=== PATIENT | male | born 1950 | race Caucasian/White ===

== ENCOUNTER 2018-02-21 09:54 | Inpatient (IN) | payer OTHER ==
[2018-02-21] MEDS ORDERED: PIPERACILLIN/TAZOB 4.5 GM 4.5 GM in DEXTROSE 5%-WATER - 100 ML IVPB ONE (10:49)
[2018-02-21] MEDS ORDERED: VANCOMYCIN 1,000 MG in DEXTROSE 5%-WATER - 250 ML IVPB ONE (10:49)
--- NOTE | 2018-02-21 11:04 | PDOC ---
History of Present Illness - General Chief Complaint: Wound Stated Complaint: WOUND Time Seen by Provider: 02/21/18 10:20 - History of Present Illness Initial Comments: 02/21/18 13:12 The patient is a 67-year-old male with past medical history significant for DM type 2 and Recurrent chronic left foot wound w/ Charcot deformity (on Clindamycin for 3 weeks, without relief) presents to the emergency department with a wound to the left foot. The patient presents with an ulcer to the arch of the L. foot, thats been recurrent following a foot surgery 3 years prior ( has hardware in foot). The patient reports receiving IV antibiotic at a hospital in [place], with noted improvement following. The patient reports November of 2017, the wound recurred to the L. foot. The patient reports following up with Oil House Attendant Dr. Sherman 3 weeks ago, who started the patient on Clindamycin daily, reports being compliant with the antibiotic. The patient states he saw Dr. Aragon yesterday who was concerned for a possible infection and cellulitis and referred the patient to the ER. The patient did not have clothes for overnight yesterday so elected to come to the ED today. The patient reports he ambulated with a leg brace. The patient reports chronic shooting pain to the legs, denies a new onset of pain. Denies clear or purulent discharge, fever, chills, chest pain, shortness of breath, new numbness, tingling or loss of sensation. The patient reports at baseline he is unable to move his left toes. The patient was referred to Wound Care team by Oil House Attendant Dr. Sherman. The patient followed up by Dr. Aragon on 02/20/2018, who advised the patient due to cellulitic appearance admission would be best to treat infection and r/o osteomyelitis. Prior to leaving the office, an offloading collage dressing was placed on the wound. Allergies: sulfamethoxazole and trimethoprim Social history: Current 1 pack a day tobacco user, 2 bottle of vodka use reported. No past or present use of recreational drug use reported. Surgical history: charcot's foot surgery left 2014 PCP: None reported Oil House Attendant: Dr. Sherman. Past History - Past Medical History Allergies/Adverse Reactions: Allergies Allergy/AdvReac Type Severity Reaction Status Date / Time sulfamethoxazole Allergy Verified 02/21/18 10:00 [From Bactrim] trimethoprim [From Bactrim] Allergy Verified 02/21/18 10:00 Home Medications: Ambulatory Orders Gabapentin [Neurontin] 1,600 mg PO TID 02/20/18 Metformin HCl [Metformin HCl ER] 1 tab PO BID 02/20/18 Sitagliptin Phosphate [Januvia] 1 tab PO DAILY 02/20/18 COPD: No Diabetes: Yes Other medical history: chr wound Lt foot - Surgical History Orthopedic Surgery: Yes (charcots foot surgery left 2015) - Immunization History Immunization Up to Date: Yes - Suicide/Smoking/Psychosocial Hx Smoking History: Current every day smoker Have you smoked in the past 12 months: Yes Number of Cigarettes Smoked Daily: 20 Information on smoking cessation initiated: No Review of Systems - Review of Systems Comments:: 02/21/18 13:14 GENERAL/CONSTITUTIONAL: No fever or chills. No weakness. HEAD, EYES, EARS, NOSE AND THROAT: No change in vision. No ear pain or discharge. No sore throat. GASTROINTESTINAL: No nausea, vomiting, diarrhea or constipation. GENITOURINARY: No dysuria, frequency, or change in urination. CARDIOVASCULAR: No chest pain or shortness of breath. RESPIRATORY: No cough, wheezing, or hemoptysis. MUSCULOSKELETAL: Chronic leg pain, no new onset of pain. No joint or muscle swelling or pain. No neck or back pain. SKIN: (+) Wound to the Arch of the L. foot. No rash NEUROLOGIC: No numbness, tingling or loss of sensation. No headache, vertigo, loss of consciousness, or change in strength/sensation. ENDOCRINE: No increased thirst. No abnormal weight change. HEMATOLOGIC/LYMPHATIC: No anemia, easy bleeding, or history of blood clots. ALLERGIC/IMMUNOLOGIC: No hives or skin allergy. *Physical Exam - Vital Signs Last Vital Signs Temp Pulse Resp BP Pulse Ox 98.5 F 85 17 117/71 97 02/21/18 09:54 02/21/18 09:54 02/21/18 09:54 02/21/18 09:54 02/21/18 09:54 - Physical Exam Comments: 02/21/18 13:15 GENERAL: Awake, alert, and fully oriented, in no acute distress EYES: sclera anicteric, conjunctiva clear ENT: Moist mucosa LUNGS: Breath sounds equal, clear to auscultation bilaterally. No wheezes, and no crackles HEART: Regular rate and rhythm, normal S1 and S2, no murmurs, rubs or gallops ABDOMEN: Soft, nontender, normoactive bowel sounds. No guarding, no rebound. No masses EXTREMITIES: Normal range of motion, no edema. No clubbing or cyanosis. No cords, erythema, or tenderness NEUROLOGICAL: Normal speech, cranial nerves intact SKIN: L plantar midfoot with 4x2 oval ulcer with some granulation tissue and surrounding erythema extending to distal calf. Heart Score/ECG Review #1 02/21/18 13:18 Twelve-lead EKG was performed and reviewed by me. Normal sinus rhythm, rate 74. Left axis deviation. Right bundle branch block and left anterior fascicular block. ED Treatment Course - LABORATORY CBC & Chemistry Diagram: 02/21/18 12:10 02/21/18 12:10 - RADIOLOGY Radiology Studies Ordered: Category Date Time Status CHEST PA & LAT [RAD] Stat Radiology 02/21/18 10:46 Ordered FOOT-LEFT [RAD] Stat Radiology 02/21/18 10:47 Ordered DUPLEX VASCUL US-1 LEG [US] Stat Ultrasound 02/21/18 10:48 Ordered Medical Decision Making - Medical Decision Making 02/21/18 11:03 67yo M hx DM2 c/b L charcot foot and foot wound presents to the ED for admission due to infected foot wounds despite 3 weeks of clindamycin. Vitals wnl. Foot appears cellulitic with no crepitance and erythema and swelling to L distal calf as well. Will broaden to Vanc/Zosyn, check labs, XR for osteo and gas, and US to eval for DVT. 02/21/18 15:23 US neg for DVT XR done, read pending Case discussed with Dr. Car, who is seeing pt Case discussed with Dr. Andrew, who accepts pt for admission Case discussed in detail with admitting physician including history, physical exam and ancillary studies. Admitting physician has assumed care for the patient, will follow all pending diagnostics and will complete the evaluation and treatment. *DC/Admit/Observation/Transfer Diagnosis at time of Disposition: Cellulitis, Diabetic foot ulcer, Failure of outpatient treatment - Discharge Dispostion Condition at time of disposition: Stable Decision to Admit order: Yes - Referrals Referrals: ON STAFF,NOT [Primary Care Provider] - - Patient Instructions - Post Discharge Activity - Attestations Physician Attestion: 02/21/18 15:27 I, Dr. Horacio Sanchez MD, attest that this document has been prepared under my direction and personally reviewed by me in its entirety. I further attest, that it accurately reflects all work, treatment, procedures and medical decision -making performed by me.
[2018-02-21 12:25] LABS: BASO % 0.8 % (0-2.0); EOS % 3.5 % (0-4.5); HEMATOCRIT 45.5 % (35.4-49); HEMOGLOBIN 15.3 GM/dL (11.7-16.9); LYMPH % 16.8 % (8-40); MCH 31.3 pg (25.7-33.7); MCHC 33.6 g/dl (32.0-35.9); MEAN CELL VOLUME 93.4 fl (80-96); MEAN PLT VOLUME 7.5 fl (7.5-11.1); MONO % 5.5 % (3.8-10.2); NEUT % 73.4 % (42.8-82.8); PLATELET COUNT 222 K/MM3 (134-434); RBC 4.87 M/mm3 (4.00-5.60); RDW 13.2 % (11.9-15.9); WHITE BLOOD COUNT 7.5 K/mm3 (4.0-10.0)
[2018-02-21] MEDS ORDERED: PIPERACILLIN/TAZOB 4.5 GM 4.5 GM/100 ML BAG IVPB ONE (12:31)
[2018-02-21] MEDS ORDERED: VANCOMYCIN 1 GRAM (PRE-DOCKED) 1,000 MG/250 ML BAG IVPB ONE (12:31)
[2018-02-21 12:45] LABS: ALBUMIN 3.5 g/dl (3.4-5.0); ALK PHOS 76 U/L (45-117); ANION GAP 10 MMOL/L (8-16); BILIRUBIN,TOTAL 0.3 mg/dL (0.2-1); BLOOD UREA NITROGEN 5 mg/dL (7-18); CALCIUM 9.7 mg/dL (8.5-10.1); CHLORIDE 102 mmol/L (98-107); CO2 27 mmol/L (21-32); CREATININE 0.8 mg/dL (0.55-1.3); GLUCOSE,RANDOM 98 mg/dL (74-106); POTASSIUM 4.4 mmol/L (3.5-5.1); SGOT/AST 10 U/L (15-37); SGPT/ALT 17 U/L (13-61); SODIUM 139 mmol/L (136-145); TOT PROT 7.2 g/dl (6.4-8.2)
--- NOTE | 2018-02-21 14:04 | CON.ID ---
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 The patient presents with an ulcer to the arch of the L. foot, that s been recurrent following a foot surgery 3 years prior (has hardware in foot). The patient reports receiving IV antibiotic at a hospital in [place], with noted improvement following. The patient reports November of 2017, the wound recurred to the L. foot. The patient reports following up with Cloth Washer Back Tender Dr. Sherman 3 weeks ago, who started the patient on Clindamycin daily, reports being compliant with the antibiotic. patients leg worsened inspite of being on abx The patient reports chronic shooting pain to the legs, denies a new onset of pain. Denies clear or purulent discharge, fever, chills, chest pain, shortness of breath, new numbness, tingling or loss of sensation. The patient reports at baseline he is unable to move his left toes. - History Source History Provided By: Patient Limitations to Obtaining History: No Limitations - Smoking History Smoking history: Current every day smoker Have you smoked in the past 12 months: Yes Aproximately how many cigarettes per day: 20 Home Medications - Allergies Allergies/Adverse Reactions: Allergies Allergy/AdvReac Type Severity Reaction Status Date / Time sulfamethoxazole Allergy Verified 02/21/18 10:00 [From Bactrim] trimethoprim [From Bactrim] Allergy Verified 02/21/18 10:00 - Home Medications Home Medications: Ambulatory Orders Gabapentin [Neurontin] 1,600 mg PO TID 02/20/18 Metformin HCl [Metformin HCl ER] 1 tab PO BID 02/20/18 Sitagliptin Phosphate [Januvia] 1 tab PO DAILY 02/20/18 Review of Systems - Review of Systems Constitutional: reports: No Symptoms Eyes: reports: No Symptoms HENT: reports: No Symptoms Neck: reports: No Symptoms Cardiovascular: reports: No Symptoms Respiratory: reports: No Symptoms Gastrointestinal: reports: No Symptoms Genitourinary: reports: No Symptoms Musculoskeletal: reports: No Symptoms Integumentary: reports: Change in Color, Erythema (left foot), Wound Neurological: reports: No Symptoms Endocrine: reports: No Symptoms Hematology/Lymphatic: reports: No Symptoms Psychiatric: reports: No Symptoms Physical Exam Vital Signs: Vital Signs Temperature 98.5 F 02/21/18 09:54 Pulse Rate 85 02/21/18 09:54 Respiratory Rate 17 02/21/18 09:54 Blood Pressure 117/71 02/21/18 09:54 O2 Sat by Pulse Oximetry (%) 97 02/21/18 09:54 Constitutional: Yes: Well Nourished, Calm, Mild Distress Eyes: Yes: Conjunctiva Clear HENT: Yes: Atraumatic, Normocephalic Neck: Yes: Supple, Trachea Midline Cardiovascular: Yes: Regular Rate and Rhythm Respiratory: Yes: Regular, CTA Bilaterally Gastrointestinal: Yes: Normal Bowel Sounds, Soft Musculoskeletal: Yes: WNL Extremities: Yes: Erythema (left foot), Other Integumentary: Yes: Erythema, Other Wound/Incision: Yes: Other (left plantal non healing wound) Neurological: Yes: Alert, Oriented Psychiatric: Yes: Alert, Oriented Labs: CBC, BMP 02/21/18 12:10 02/21/18 12:10 Imaging - Results Chest X-ray: Report Reviewed, Image Reviewed X-ray: Report Reviewed, Image Reviewed Assessment/Plan Problem List - Problems (1) Diabetes Code(s): E11.9 - TYPE 2 DIABETES MELLITUS WITHOUT COMPLICATIONS (2) Cellulitis Code(s): L03.90 - CELLULITIS, UNSPECIFIED (3) Diabetic foot ulcer Code(s): E11.621 - TYPE 2 DIABETES MELLITUS WITH FOOT ULCER; L97.509 - NON- PRESSURE CHRONIC ULCER OTH PRT UNSP FOOT W UNSP SEVERITY 4 r/o osteo of the foot plan will start patient on zosyn will get bone scan to see if patient has osteo podiatry to see the patient rest as per the team
--- NOTE | 2018-02-21 15:43 | EKG ---
Test Reason : Blood Pressure : / mmHG Vent. Rate : 074 BPM Atrial Rate : 074 BPM P-R Int : 194 ms QRS Dur : 132 ms QT Int : 442 ms P-R-T Axes : 070 -55 -23 degrees QTc Int : 490 ms NORMAL SINUS RHYTHM RIGHT BUNDLE BRANCH BLOCK LEFT ANTERIOR FASCICULAR BLOCK BIFASCICULAR BLOCK SEPTAL INFARCT , AGE UNDETERMINED ABNORMAL ECG NO PREVIOUS ECGS AVAILABLE Confirmed by ROSENDA MORA, YENIFER ([id number]) on 02/21/2018 3:42:59 PM Referred By: Confirmed By:YENIFER HERZOG MD
--- NOTE | 2018-02-21 18:42 | HP ---
Admitting History and Physical - Primary Care Physician PCP: [facility] - Admission History of Present Illness: 67-year-old male with past medical history significant for DM type 2 and Recurrent chronic left foot wound w/ Charcot deformity (on Clindamycin for 3 weeks, without relief) presents to the emergency department with a wound to the left foot. The patient presents with an ulcer to the arch of the L. foot, that s been recurrent following a foot surgery 3 years prior (has hardware in foot). The patient reports receiving IV antibiotic at a hospital in [place], with noted improvement following. The patient reports November of 2017, the wound recurred to the L. foot. The patient reports following up with Bench Technician Dr. Sherman 3 weeks ago, who started the patient on Clindamycin daily, reports being compliant with the antibiotic. The patient states he saw Dr. Aragon yesterday who was concerned for a possible infection and cellulitis and referred the patient to the ER. The patient did not have clothes for overnight yesterday so elected to come to the ED today. The patient reports he ambulated with a leg brace. - Past Medical History Endocrine: Yes: Diabetes Mellitus - Smoking History Smoking history: Current every day smoker Have you smoked in the past 12 months: Yes Aproximately how many cigarettes per day: 20 Home Medications - Allergies Allergies/Adverse Reactions: Allergies Allergy/AdvReac Type Severity Reaction Status Date / Time sulfamethoxazole Allergy Verified 02/21/18 10:00 [From Bactrim] trimethoprim [From Bactrim] Allergy Verified 02/21/18 10:00 - Home Medications Home Medications: Ambulatory Orders Gabapentin [Neurontin] 1,200 mg PO TID 02/20/18 Metformin HCl [Metformin HCl ER] 1 tab PO BID 02/20/18 Sitagliptin Phosphate [Januvia] 100 tab PO DAILY 02/20/18 Pramipexole Dihydrochloride [Mirapex -] 0.125 mg PO HS 02/22/18 Physical Examination Vital Signs: Vital Signs Temperature 98.2 F 02/21/18 17:51 Pulse Rate 68 02/21/18 17:51 Respiratory Rate 18 02/21/18 17:51 Blood Pressure 141/76 02/21/18 17:51 O2 Sat by Pulse Oximetry (%) 100 02/21/18 17:51 Constitutional: Yes: No Distress HENT: Yes: Atraumatic Neck: Yes: Supple Cardiovascular: Yes: Regular Rate and Rhythm Respiratory: Yes: CTA Bilaterally Gastrointestinal: Yes: Normal Bowel Sounds Extremities: Yes: Other (left foot infection, charcot foot) Edema: Yes Edema: LLE: 1+ Neurological: Yes: Alert, Oriented Labs: CBC, BMP 02/21/18 12:10 02/21/18 12:10 Problem List - Problems (1) Diabetes Assessment/Plan: on po meds bgms sliding [place] insulin Code(s): E11.9 - TYPE 2 DIABETES MELLITUS WITHOUT COMPLICATIONS (2) Cellulitis Assessment/Plan: on iv abx woundcare podiatry and id on board Code(s): L03.90 - CELLULITIS, UNSPECIFIED (3) Diabetic foot ulcer Code(s): E11.621 - TYPE 2 DIABETES MELLITUS WITH FOOT ULCER; L97.509 - NON- PRESSURE CHRONIC ULCER OTH PRT UNSP FOOT W UNSP SEVERITY Assessment/Plan Laboratory Tests 02/21/18 02/21/18 02/21/18 12:00 12:10 12:10 WBC 7.5 RBC 4.87 Hgb 15.3 Hct 45.5 MCV 93.4 MCH 31.3 MCHC 33.6 RDW 13.2 Plt Count 222 MPV 7.5 Absolute Neuts (auto) 5.5 Neutrophils % 73.4 Lymphocytes % 16.8 Monocytes % 5.5 Eosinophils % 3.5 Basophils % 0.8 Nucleated RBC % 0 ESR 44 H Sodium 139 Potassium 4.4 Chloride 102 Carbon Dioxide 27 Anion Gap 10 BUN 5 L Creatinine 0.8 Creat Clearance w eGFR > 60 Random Glucose 98 Calcium 9.7 Total Bilirubin 0.3 AST 10 L ALT 17 Alkaline Phosphatase 76 C-Reactive Protein 1.4 H Total Protein 7.2 Albumin 3.5 Active Medications Generic Name Dose Route Start Last Admin Trade Name Freq PRN Reason Stop Dose Admin Piperacillin Sod/Tazobactam 50 mls @ 100 mls/hr 02/21/18 18:00 Sod 3.375 gm/ Dextrose IVPB Q8H-IV MEHREEN Protocol Active Medications Generic Name Dose Route Start Last Admin Trade Name Freq PRN Reason Stop Dose Admin Collagenase 1 applic 02/22/18 08:52 02/22/18 12:06 Santyl - TP 2 mm DAILY MEHREEN Administration Protocol Gabapentin 300 mg 02/21/18 22:00 02/22/18 13:43 Neurontin - PO 300 mg TID MEHREEN Administration Heparin Sodium (Porcine) 5,000 unit 02/21/18 22:00 02/22/18 10:36 Heparin - SQ 5,000 unit BID MEHREEN Administration Piperacillin Sod/Tazobactam 50 mls @ 100 mls/hr 02/21/18 18:00 02/22/18 17:05 Sod 3.375 gm/ Dextrose IVPB 100 mls/hr Q8H-IV MEHREEN Administration Protocol Insulin Aspart 1 vial 02/21/18 22:00 02/22/18 16:59 Novolog Vial Sliding Scale - SQ 2 units ACHS MEHREEN Administration Protocol Metformin HCl 1,000 mg 02/22/18 07:00 02/22/18 17:05 Glucophage Xr - PO 1,000 mg BIDAC MEHREEN Administration Nicotine 21 mg 02/22/18 17:30 02/22/18 17:49 Nicoderm Patch - TD 21 mg DAILY MEHREEN Administration Sitagliptin Phosphate 100 mg 02/22/18 07:00 02/22/18 06:30 Januvia - PO 100 mg DAILY@0700 MEHREEN Administration
[2018-02-21] MEDS ORDERED: DEXTROSE 5%-WATER - 50 ML IVPB ONE (18:59)
[2018-02-21] MEDS ORDERED: PIPERACILLIN/TAZOBACTAM 3.375 GM VIAL IVPB ONE (18:59)
[2018-02-21] MEDS: PIPERACILLIN/TAZOB 3.375 GM 3.375 GM in DEXTROSE 5%-WATER - 50 ML IVPB SCH (19:01)
[2018-02-21 20:28] VITALS: BMI 30.2
[2018-02-21] MEDS: HEPARIN NA (PORCINE) 5,000 UNITS/ML 1ML VIAL SQ SCH (21:21)
[2018-02-21] MEDS: GABAPENTIN 300 MG CAPSULE (FP) PO SCH (21:21)
[2018-02-21] MEDS ORDERED: INSULIN (NOVOLOG) ASPART 100 UNITS/ML 10ML VIAL ONE (21:28)
[2018-02-21] MEDS: INSULIN SLIDING SCALE (NOVOLOG) 1 VIAL SQ SCH (21:29)
[2018-02-21] MEDS ORDERED: GABAPENTIN 400 MG CAPSULE (FP) PO SCH ×2 (22:00)
[2018-02-22] MEDS ORDERED: PIPERACILLIN/TAZOBACTAM 3.375 GM VIAL IVPB ONE ×3 (02:32→17:05)
[2018-02-22] MEDS ORDERED: DEXTROSE 5%-WATER - 50 ML IVPB ONE ×3 (02:33→17:05)
[2018-02-22] MEDS: PIPERACILLIN/TAZOB 3.375 GM 3.375 GM in DEXTROSE 5%-WATER - 50 ML IVPB SCH ×3 (02:39→17:05)
[2018-02-22] MEDS: GABAPENTIN 300 MG CAPSULE (FP) PO SCH ×2 (06:30→13:43)
[2018-02-22] MEDS: sitaGLIPtin PHOSPHATE 100 MG TABLET (FP) PO SCH (06:30)
[2018-02-22] MEDS: INSULIN SLIDING SCALE (NOVOLOG) 1 VIAL SQ SCH ×4 (06:30→21:19)
[2018-02-22] MEDS ORDERED: PT OWN MED DRAWER 7, Y5N ONE ×2 (07:05→17:05)
[2018-02-22 08:18] LABS: BASO % 0.8 % (0-2.0); EOS % 5.3 % (0-4.5); HEMATOCRIT 43.6 % (35.4-49); HEMOGLOBIN 14.3 GM/dL (11.7-16.9); LYMPH % 20.8 % (8-40); MCH 30.9 pg (25.7-33.7); MCHC 32.8 g/dl (32.0-35.9); MEAN CELL VOLUME 94.4 fl (80-96); MONO % 8.7 % (3.8-10.2); NEUT % 64.4 % (42.8-82.8); PLATELET COUNT 175 K/MM3 (134-434); RBC 4.62 M/mm3 (4.00-5.60); RDW 13.1 % (11.9-15.9); WHITE BLOOD COUNT 6.3 K/mm3 (4.0-10.0)
[2018-02-22 08:34] LABS: ALBUMIN 3.1 g/dl (3.4-5.0); ALK PHOS 66 U/L (45-117); ANION GAP 6 MMOL/L (8-16); BILIRUBIN,TOTAL 0.4 mg/dL (0.2-1); BLOOD UREA NITROGEN 8 mg/dL (7-18); CALCIUM 8.9 mg/dL (8.5-10.1); CHLORIDE 104 mmol/L (98-107); CO2 28 mmol/L (21-32); CREATININE 0.9 mg/dL (0.55-1.3); GLUCOSE,RANDOM 103 mg/dL (74-106); POTASSIUM 4.2 mmol/L (3.5-5.1); SGOT/AST 13 U/L (15-37); SGPT/ALT 14 U/L (13-61); SODIUM 138 mmol/L (136-145); TOT PROT 6.3 g/dl (6.4-8.2)
--- NOTE | 2018-02-22 08:41 | CONSULT ---
Consult Consult Specialty:: Podiatry Reason for Consultation:: cellulitis left foot - History of Present Illness Chief Complaint: wound left foot since November History of Present Illness: wound since November 2017 medial arch left foot. Treated by Event Planning Intern referred to [facility] for healing. Cellulitis noted. and admitted. - Past Medical History Endocrine: Yes: Diabetes Mellitus - Alcohol/Substance Use Hx Alcohol Use: Yes - Smoking History Smoking history: Current every day smoker Have you smoked in the past 12 months: Yes Aproximately how many cigarettes per day: 20 Home Medications - Allergies Allergies/Adverse Reactions: Allergies Allergy/AdvReac Type Severity Reaction Status Date / Time sulfamethoxazole Allergy Verified 02/21/18 10:00 [From Bactrim] trimethoprim [From Bactrim] Allergy Verified 02/21/18 10:00 - Home Medications Home Medications: Ambulatory Orders Gabapentin [Neurontin] 1,600 mg PO TID 02/20/18 Metformin HCl [Metformin HCl ER] 1 tab PO BID 02/20/18 Sitagliptin Phosphate [Januvia] 1 tab PO DAILY 02/20/18 Physical Exam Vital Signs: Vital Signs Temperature 98.4 F 02/22/18 07:01 Pulse Rate 68 02/22/18 07:01 Respiratory Rate 20 02/22/18 07:01 Blood Pressure 128/80 02/22/18 07:01 O2 Sat by Pulse Oximetry (%) 100 02/21/18 20:05 Extremities: Yes: Other (wound left foot medial arch secondary to charcot deformity, -drainage, +granulation with patches of necrosis) Labs: CBC, BMP 02/22/18 07:00 02/22/18 07:00 Imaging - Results X-ray: Report Reviewed (bone scan to r/o osteomyelitis vs acute charcot flare up ) Assessment/Plan r/o om r/o acute charcot flare up cellulitis Santyl dressing change left foot. Vascular consult. Dr. Car on case for ID. Will follow. Offloading as much as possible. HGBA1c ordered. Labs reviewed. Hyperbaric consult.
[2018-02-22] MEDS: HEPARIN NA (PORCINE) 5,000 UNITS/ML 1ML VIAL SQ SCH ×2 (10:36→21:18)
[2018-02-22] MEDS: COLLAGENASE CLOSTRIDIUM HIST. 30 GRAMS TUBE TP SCH (12:06)
--- NOTE | 2018-02-22 14:24 | PN ---
Progress Note, Physician - Current Medication List Current Medications: Active Medications Collagenase (Santyl -) 1 applic TP DAILY [facility]; Protocol Last Admin: 02/22/18 12:06 Dose: 2 mm Gabapentin (Neurontin -) 300 mg PO TID [facility] Last Admin: 02/22/18 13:43 Dose: 300 mg Heparin Sodium (Porcine) (Heparin -) 5,000 unit SQ BID [facility] Last Admin: 02/22/18 10:36 Dose: 5,000 unit Piperacillin Sod/Tazobactam (Sod 3.375 gm/ Dextrose) 50 mls @ 100 mls/hr IVPB Q8H-IV [facility]; Protocol Last Admin: 02/22/18 10:38 Dose: 100 mls/hr Insulin Aspart (Novolog Vial Sliding Scale -) 1 vial SQ ACHS [facility]; Protocol Last Admin: 02/22/18 12:02 Dose: 2 dis.syr Metformin HCl (Glucophage Xr -) 1,000 mg PO BIDAC [facility] Last Admin: 02/22/18 06:30 Dose: 1,000 mg Sitagliptin Phosphate (Januvia -) 100 mg PO DAILY@0700 [facility] Last Admin: 02/22/18 06:30 Dose: 100 mg - Objective Vital Signs: Vital Signs Temperature 98.7 F 02/22/18 10:00 Pulse Rate 65 02/22/18 10:00 Respiratory Rate 16 02/22/18 10:00 Blood Pressure 145/79 02/22/18 10:00 O2 Sat by Pulse Oximetry (%) 100 02/22/18 09:00 Constitutional: Yes: No Distress HENT: Yes: Atraumatic Neck: Yes: Supple Cardiovascular: Yes: Regular Rate and Rhythm Respiratory: Yes: CTA Bilaterally Gastrointestinal: Yes: Normal Bowel Sounds Extremities: Yes: Other (left foot infection) Edema: Yes Edema: LLE: 1+ Neurological: Yes: Alert, Oriented Labs: CBC, BMP 02/22/18 07:00 02/22/18 07:00 Problem List - Problems (1) Diabetes Assessment/Plan: on po meds bgms sliding scale insulin Code(s): E11.9 - TYPE 2 DIABETES MELLITUS WITHOUT COMPLICATIONS (2) Cellulitis Assessment/Plan: on iv abx woundcare podiatry and id on board Code(s): L03.90 - CELLULITIS, UNSPECIFIED (3) Diabetic foot ulcer Code(s): E11.621 - TYPE 2 DIABETES MELLITUS WITH FOOT ULCER; L97.509 - NON- PRESSURE CHRONIC ULCER OTH PRT UNSP FOOT W UNSP SEVERITY
--- NOTE | 2018-02-22 16:51 | PN ---
Progress Note, Physician History of Present Illness: Pt is alert, afebrile. Has no new complaints. Asking for nicotine patch and higher dose of gabapentin. Tolerating antibiotics. - Current Medication List Current Medications: Active Medications Collagenase (Santyl -) 1 applic TP DAILY [facility]; Protocol Last Admin: 02/22/18 12:06 Dose: 2 mm Gabapentin (Neurontin -) 300 mg PO TID [facility] Last Admin: 02/22/18 13:43 Dose: 300 mg Heparin Sodium (Porcine) (Heparin -) 5,000 unit SQ BID [facility] Last Admin: 02/22/18 10:36 Dose: 5,000 unit Piperacillin Sod/Tazobactam (Sod 3.375 gm/ Dextrose) 50 mls @ 100 mls/hr IVPB Q8H-IV [facility]; Protocol Last Admin: 02/22/18 10:38 Dose: 100 mls/hr Insulin Aspart (Novolog Vial Sliding Scale -) 1 vial SQ ACHS [facility]; Protocol Last Admin: 02/22/18 12:02 Dose: 2 dis.syr Metformin HCl (Glucophage Xr -) 1,000 mg PO BIDAC [facility] Last Admin: 02/22/18 06:30 Dose: 1,000 mg Sitagliptin Phosphate (Januvia -) 100 mg PO DAILY@0700 [facility] Last Admin: 02/22/18 06:30 Dose: 100 mg - Objective Vital Signs: Vital Signs Temperature 98.3 F 02/22/18 14:52 Pulse Rate 62 02/22/18 14:52 Respiratory Rate 17 02/22/18 14:52 Blood Pressure 147/79 02/22/18 14:52 O2 Sat by Pulse Oximetry (%) 100 02/22/18 09:00 Constitutional: Yes: No Distress, Calm Cardiovascular: Yes: Regular Rate and Rhythm Respiratory: Yes: Regular Gastrointestinal: Yes: Normal Bowel Sounds, Soft Genitourinary: Yes: WNL Wound/Incision: Yes: Dressing Dry and Intact (Lt foot, mild warmth) Neurological: Yes: Alert, Oriented Labs: CBC, BMP 02/22/18 07:00 02/22/18 07:00 Microbiology 02/21/18 12:05 Blood - Peripheral Venous Blood Culture - Preliminary NO GROWTH OBTAINED AFTER 24 HOURS, INCUBATION TO CONTINUE FOR 4 DAYS. 02/21/18 12:05 Blood - Peripheral Venous Blood Culture - Preliminary NO GROWTH OBTAINED AFTER 24 HOURS, INCUBATION TO CONTINUE FOR 4 DAYS. Problem List - Problems (1) Cellulitis Code(s): L03.90 - CELLULITIS, UNSPECIFIED (2) Failure of outpatient treatment Code(s): Z78.9 - OTHER SPECIFIED HEALTH STATUS Assessment/Plan Infected Chronic Lt foot arch wound/cellulitis R/O Osteomyelitis Lt foot Charcot deformity DM - continue antibiotics - Bone scan ordered - continue wound care Blood cultures negative, pt currently afebrile
[2018-02-22] MEDS: NICOTINE 21 MG/24 HOURS TOPICAL PATCH TD SCH (17:49)
[2018-02-22] MEDS: GABAPENTIN 400 MG CAPSULE (FP) PO SCH (21:18)
[2018-02-22] MEDS: PRAMIPEXOLE DIHYDROCHLORIDE 0.125 MG TABLET PO SCH (21:18)
[2018-02-23] MEDS ORDERED: PIPERACILLIN/TAZOBACTAM 3.375 GM VIAL IVPB ONE ×4 (02:43→15:22)
[2018-02-23] MEDS ORDERED: DEXTROSE 5%-WATER - 50 ML IVPB ONE ×4 (02:44→15:22)
[2018-02-23] MEDS: PIPERACILLIN/TAZOB 3.375 GM 3.375 GM in DEXTROSE 5%-WATER - 50 ML IVPB SCH ×3 (02:53→16:59)
[2018-02-23] MEDS: GABAPENTIN 400 MG CAPSULE (FP) PO SCH ×3 (06:37→22:42)
[2018-02-23] MEDS: sitaGLIPtin PHOSPHATE 100 MG TABLET (FP) PO SCH (06:37)
[2018-02-23] MEDS ORDERED: PT OWN MED DRAWER 7, Y5N ONE ×4 (06:37→22:25)
[2018-02-23] MEDS: INSULIN SLIDING SCALE (NOVOLOG) 1 VIAL SQ SCH ×4 (06:39→22:45)
[2018-02-23] MEDS: HEPARIN NA (PORCINE) 5,000 UNITS/ML 1ML VIAL SQ SCH ×2 (09:12→22:42)
[2018-02-23] MEDS: NICOTINE 21 MG/24 HOURS TOPICAL PATCH TD SCH (09:12)
[2018-02-23] MEDS: COLLAGENASE CLOSTRIDIUM HIST. 30 GRAMS TUBE TP SCH (09:16)
[2018-02-23] MEDS ORDERED: INSULIN (NOVOLOG) ASPART 100 UNITS/ML 10ML VIAL ONE (11:27)
--- NOTE | 2018-02-23 16:49 | PN ---
Progress Note, Physician History of Present Illness: Pt afebrile, without new complaints. - Current Medication List Current Medications: Active Medications Collagenase (Santyl -) 1 applic TP DAILY [facility]; Protocol Last Admin: 02/23/18 09:16 Dose: 1 applic Gabapentin (Neurontin -) 1,200 mg PO TID [facility] Last Admin: 02/23/18 14:08 Dose: 1,200 mg Heparin Sodium (Porcine) (Heparin -) 5,000 unit SQ BID [facility] Last Admin: 02/23/18 09:12 Dose: 5,000 unit Piperacillin Sod/Tazobactam (Sod 3.375 gm/ Dextrose) 50 mls @ 100 mls/hr IVPB Q8H-IV [facility]; Protocol Last Admin: 02/23/18 09:12 Dose: 100 mls/hr Insulin Aspart (Novolog Vial Sliding Scale -) 1 vial SQ ACHS [facility]; Protocol Last Admin: 02/23/18 11:28 Dose: 2 units Metformin HCl (Glucophage Xr -) 1,000 mg PO BIDAC [facility] Last Admin: 02/23/18 06:38 Dose: 1,000 mg Nicotine (Nicoderm Patch -) 21 mg TD DAILY [facility] Last Admin: 02/23/18 09:12 Dose: 21 mg Pramipexole Dihydrochloride (Mirapex -) 0.125 mg PO HS [facility] Last Admin: 02/22/18 21:18 Dose: 0.125 mg Sitagliptin Phosphate (Januvia -) 100 mg PO DAILY@0700 [facility] Last Admin: 02/23/18 06:37 Dose: 100 mg - Objective Vital Signs: Vital Signs Temperature 98.6 F 02/23/18 07:44 Pulse Rate 65 02/23/18 07:44 Respiratory Rate 16 02/23/18 07:44 Blood Pressure 143/85 02/23/18 07:44 O2 Sat by Pulse Oximetry (%) 100 02/23/18 09:00 Constitutional: Yes: No Distress Cardiovascular: Yes: Regular Rate and Rhythm Respiratory: Yes: Regular Gastrointestinal: Yes: Normal Bowel Sounds, Soft Extremities: Yes: Erythema (Lt foot) Wound/Incision: Yes: Dressing Dry and Intact Neurological: Yes: Alert Labs: CBC, BMP 02/22/18 07:00 02/22/18 07:00 Problem List - Problems (1) Cellulitis Code(s): L03.90 - CELLULITIS, UNSPECIFIED (2) Failure of outpatient treatment Code(s): Z78.9 - OTHER SPECIFIED HEALTH STATUS Assessment/Plan Infected Chronic Lt foot arch wound/cellulitis R/O Osteomyelitis Lt foot Charcot deformity DM - continue current antibiotics - Bone scan pending - continue wound care pt currently afebrile/stable
--- NOTE | 2018-02-23 20:29 | PN ---
Progress Note, Physician History of Present Illness: doing well - Current Medication List Current Medications: Active Medications Collagenase (Santyl -) 1 applic TP DAILY [facility]; Protocol Last Admin: 02/23/18 09:16 Dose: 1 applic Gabapentin (Neurontin -) 1,200 mg PO TID [facility] Last Admin: 02/23/18 14:08 Dose: 1,200 mg Heparin Sodium (Porcine) (Heparin -) 5,000 unit SQ BID [facility] Last Admin: 02/23/18 09:12 Dose: 5,000 unit Piperacillin Sod/Tazobactam (Sod 3.375 gm/ Dextrose) 50 mls @ 100 mls/hr IVPB Q8H-IV [facility]; Protocol Last Admin: 02/23/18 16:59 Dose: 100 mls/hr Insulin Aspart (Novolog Vial Sliding Scale -) 1 vial SQ ACHS [facility]; Protocol Last Admin: 02/23/18 16:58 Dose: 2 units Metformin HCl (Glucophage Xr -) 1,000 mg PO BIDAC [facility] Last Admin: 02/23/18 16:58 Dose: 1,000 mg Nicotine (Nicoderm Patch -) 21 mg TD DAILY [facility] Last Admin: 02/23/18 09:12 Dose: 21 mg Pramipexole Dihydrochloride (Mirapex -) 0.125 mg PO HS [facility] Last Admin: 02/22/18 21:18 Dose: 0.125 mg Sitagliptin Phosphate (Januvia -) 100 mg PO DAILY@0700 [facility] Last Admin: 02/23/18 06:37 Dose: 100 mg - Objective Vital Signs: Vital Signs Temperature 98.6 F 02/23/18 07:44 Pulse Rate 65 02/23/18 07:44 Respiratory Rate 16 02/23/18 07:44 Blood Pressure 143/85 02/23/18 07:44 O2 Sat by Pulse Oximetry (%) 100 02/23/18 09:00 Constitutional: Yes: No Distress HENT: Yes: Atraumatic Neck: Yes: Supple Cardiovascular: Yes: Regular Rate and Rhythm Respiratory: Yes: CTA Bilaterally Gastrointestinal: Yes: Normal Bowel Sounds Extremities: Yes: Other (left foot cellulitis) Edema: Yes Edema: LLE: 2+ Neurological: Yes: Alert, Oriented Labs: CBC, BMP 02/22/18 07:00 02/22/18 07:00 Problem List - Problems (1) Diabetes Assessment/Plan: on po meds bgms sliding scale insulin Code(s): E11.9 - TYPE 2 DIABETES MELLITUS WITHOUT COMPLICATIONS (2) Cellulitis Assessment/Plan: on iv abx woundcare podiatry and id on board for bone scan in am Code(s): L03.90 - CELLULITIS, UNSPECIFIED (3) Diabetic foot ulcer Code(s): E11.621 - TYPE 2 DIABETES MELLITUS WITH FOOT ULCER; L97.509 - NON- PRESSURE CHRONIC ULCER OTH PRT UNSP FOOT W UNSP SEVERITY (4) Smoking Assessment/Plan: on nicotine patch Code(s): F17.200 - NICOTINE DEPENDENCE, UNSPECIFIED, UNCOMPLICATED
[2018-02-23] MEDS: PRAMIPEXOLE DIHYDROCHLORIDE 0.125 MG TABLET PO SCH (22:44)
[2018-02-24] MEDS ORDERED: PIPERACILLIN/TAZOBACTAM 3.375 GM VIAL IVPB ONE ×3 (01:51→18:14)
[2018-02-24] MEDS ORDERED: DEXTROSE 5%-WATER - 50 ML IVPB ONE ×2 (01:52→18:14)
[2018-02-24] MEDS: PIPERACILLIN/TAZOB 3.375 GM 3.375 GM in DEXTROSE 5%-WATER - 50 ML IVPB SCH ×3 (02:05→18:18)
[2018-02-24] MEDS: GABAPENTIN 400 MG CAPSULE (FP) PO SCH ×3 (06:27→21:16)
[2018-02-24] MEDS: sitaGLIPtin PHOSPHATE 100 MG TABLET (FP) PO SCH (06:27)
[2018-02-24] MEDS: INSULIN SLIDING SCALE (NOVOLOG) 1 VIAL SQ SCH ×4 (06:28→21:17)
[2018-02-24] MEDS: HEPARIN NA (PORCINE) 5,000 UNITS/ML 1ML VIAL SQ SCH ×2 (09:13→21:19)
[2018-02-24] MEDS: NICOTINE 21 MG/24 HOURS TOPICAL PATCH TD SCH (09:13)
[2018-02-24] MEDS: COLLAGENASE CLOSTRIDIUM HIST. 30 GRAMS TUBE TP SCH (09:14)
--- NOTE | 2018-02-24 10:00 | PN ---
Progress Note, Physician History of Present Illness: stable all cx reports noted wound stable patient has no complaints - Current Medication List Current Medications: Active Medications Collagenase (Santyl -) 1 applic TP DAILY [facility]; Protocol Last Admin: 02/24/18 09:14 Dose: 1 applic Gabapentin (Neurontin -) 1,200 mg PO TID [facility] Last Admin: 02/24/18 06:27 Dose: 1,200 mg Heparin Sodium (Porcine) (Heparin -) 5,000 unit SQ BID [facility] Last Admin: 02/24/18 09:13 Dose: 5,000 unit Piperacillin Sod/Tazobactam (Sod 3.375 gm/ Dextrose) 50 mls @ 100 mls/hr IVPB Q8H-IV [facility]; Protocol Last Admin: 02/24/18 09:13 Dose: 100 mls/hr Insulin Aspart (Novolog Vial Sliding Scale -) 1 vial SQ ACHS [facility]; Protocol Last Admin: 02/24/18 06:28 Dose: Not Given Metformin HCl (Glucophage Xr -) 1,000 mg PO BIDAC [facility] Last Admin: 02/24/18 06:27 Dose: 1,000 mg Nicotine (Nicoderm Patch -) 21 mg TD DAILY [facility] Last Admin: 02/24/18 09:13 Dose: 21 mg Pramipexole Dihydrochloride (Mirapex -) 0.125 mg PO HS [facility] Last Admin: 02/23/18 22:44 Dose: 0.125 mg Sitagliptin Phosphate (Januvia -) 100 mg PO DAILY@0700 [facility] Last Admin: 02/24/18 06:27 Dose: 100 mg - Objective Vital Signs: Vital Signs Temperature 98.3 F 02/24/18 06:00 Pulse Rate 56 L 02/24/18 06:00 Respiratory Rate 18 02/24/18 06:00 Blood Pressure 138/78 02/24/18 06:00 O2 Sat by Pulse Oximetry (%) 95 02/24/18 09:00 Constitutional: Yes: No Distress, Calm Cardiovascular: Yes: Regular Rate and Rhythm Respiratory: Yes: Regular, CTA Bilaterally Gastrointestinal: Yes: Normal Bowel Sounds, Soft Musculoskeletal: Yes: WNL Extremities: Yes: Other Wound/Incision: Yes: Dressing Dry and Intact Neurological: Yes: Alert, Oriented Psychiatric: Yes: Alert, Oriented Labs: CBC, BMP 02/22/18 07:00 02/22/18 07:00 Assessment/Plan Problem List - Problems (1) Diabetes Code(s): E11.9 - TYPE 2 DIABETES MELLITUS WITHOUT COMPLICATIONS (2) Cellulitis Code(s): L03.90 - CELLULITIS, UNSPECIFIED (3) Diabetic foot ulcer Code(s): E11.621 - TYPE 2 DIABETES MELLITUS WITH FOOT ULCER; L97.509 - NON- PRESSURE CHRONIC ULCER OTH PRT UNSP FOOT W UNSP SEVERITY 4 osteo of the foot bone scan result noted plan patient with bone infection now with osteo continue current mgmt wound care labs rest as per the team abx discussed will need a [picc line
[2018-02-24] MEDS ORDERED: INSULIN (NOVOLOG) ASPART 100 UNITS/ML 10ML VIAL ONE ×3 (10:45→21:10)
--- NOTE | 2018-02-24 14:15 | PN ---
Progress Note, Physician - Current Medication List Current Medications: Active Medications Collagenase (Santyl -) 1 applic TP DAILY [facility]; Protocol Last Admin: 02/24/18 09:14 Dose: 1 applic Gabapentin (Neurontin -) 1,200 mg PO TID [facility] Last Admin: 02/24/18 14:04 Dose: 1,200 mg Heparin Sodium (Porcine) (Heparin -) 5,000 unit SQ BID [facility] Last Admin: 02/24/18 09:13 Dose: 5,000 unit Piperacillin Sod/Tazobactam (Sod 3.375 gm/ Dextrose) 50 mls @ 100 mls/hr IVPB Q8H-IV [facility]; Protocol Last Admin: 02/24/18 09:13 Dose: 100 mls/hr Insulin Aspart (Novolog Vial Sliding Scale -) 1 vial SQ ACHS [facility]; Protocol Last Admin: 02/24/18 10:46 Dose: 2 units Metformin HCl (Glucophage Xr -) 1,000 mg PO BIDAC [facility] Last Admin: 02/24/18 06:27 Dose: 1,000 mg Nicotine (Nicoderm Patch -) 21 mg TD DAILY [facility] Last Admin: 02/24/18 09:13 Dose: 21 mg Pramipexole Dihydrochloride (Mirapex -) 0.125 mg PO HS [facility] Last Admin: 02/23/18 22:44 Dose: 0.125 mg Sitagliptin Phosphate (Januvia -) 100 mg PO DAILY@0700 [facility] Last Admin: 02/24/18 06:27 Dose: 100 mg - Objective Vital Signs: Vital Signs Temperature 98.3 F 02/24/18 06:00 Pulse Rate 56 L 02/24/18 06:00 Respiratory Rate 18 02/24/18 06:00 Blood Pressure 138/78 02/24/18 06:00 O2 Sat by Pulse Oximetry (%) 95 02/24/18 09:00 Constitutional: Yes: No Distress HENT: Yes: Atraumatic Neck: Yes: Supple Cardiovascular: Yes: Regular Rate and Rhythm Respiratory: Yes: CTA Bilaterally Gastrointestinal: Yes: Normal Bowel Sounds Extremities: Yes: Other (l foot cellulitis) Edema: Yes Edema: LLE: 3+ Neurological: Yes: Alert, Oriented Labs: CBC, BMP 02/22/18 07:00 02/22/18 07:00 Problem List - Problems (1) Diabetes Assessment/Plan: on po meds bgms sliding scale insulin Code(s): E11.9 - TYPE 2 DIABETES MELLITUS WITHOUT COMPLICATIONS (2) Cellulitis Assessment/Plan: on iv abx woundcare podiatry and id on board bone scan..osteo id to decide on abx depending upon cxs Code(s): L03.90 - CELLULITIS, UNSPECIFIED (3) Diabetic foot ulcer Code(s): E11.621 - TYPE 2 DIABETES MELLITUS WITH FOOT ULCER; L97.509 - NON- PRESSURE CHRONIC ULCER OTH PRT UNSP FOOT W UNSP SEVERITY (4) Smoking Code(s): F17.200 - NICOTINE DEPENDENCE, UNSPECIFIED, UNCOMPLICATED
[2018-02-24] MEDS ORDERED: PT OWN MED DRAWER 7, Y5N ONE (21:11)
[2018-02-24] MEDS: PRAMIPEXOLE DIHYDROCHLORIDE 0.125 MG TABLET PO SCH (21:16)
[2018-02-25] MEDS ORDERED: PIPERACILLIN/TAZOBACTAM 3.375 GM VIAL IVPB ONE ×3 (02:05→16:47)
[2018-02-25] MEDS ORDERED: DEXTROSE 5%-WATER - 50 ML IVPB ONE ×3 (02:06→16:48)
[2018-02-25] MEDS: PIPERACILLIN/TAZOB 3.375 GM 3.375 GM in DEXTROSE 5%-WATER - 50 ML IVPB SCH ×3 (02:37→17:03)
[2018-02-25] MEDS: GABAPENTIN 400 MG CAPSULE (FP) PO SCH ×3 (06:47→22:25)
[2018-02-25] MEDS: sitaGLIPtin PHOSPHATE 100 MG TABLET (FP) PO SCH (06:47)
[2018-02-25] MEDS ORDERED: PT OWN MED DRAWER 7, Y5N ONE ×2 (07:56→21:35)
[2018-02-25] MEDS: NICOTINE 21 MG/24 HOURS TOPICAL PATCH TD SCH (09:18)
[2018-02-25] MEDS: HEPARIN NA (PORCINE) 5,000 UNITS/ML 1ML VIAL SQ SCH ×2 (09:18→22:25)
[2018-02-25] MEDS: COLLAGENASE CLOSTRIDIUM HIST. 30 GRAMS TUBE TP SCH (09:22)
[2018-02-25] MEDS ORDERED: PICC LINE 8 ML FLUSH PROTOCOL IVPUSH PRN (09:58)
--- NOTE | 2018-02-25 09:58 | PN ---
Progress Note, Physician History of Present Illness: patient stable nuclear scan report noted patient has osteo - Current Medication List Current Medications: Active Medications Collagenase (Santyl -) 1 applic TP DAILY [facility]; Protocol Last Admin: 02/25/18 09:22 Dose: 1 applic Gabapentin (Neurontin -) 1,200 mg PO TID [facility] Last Admin: 02/25/18 06:47 Dose: 1,200 mg Heparin Sodium (Porcine) (Heparin -) 5,000 unit SQ BID [facility] Last Admin: 02/25/18 09:18 Dose: 5,000 unit Piperacillin Sod/Tazobactam (Sod 3.375 gm/ Dextrose) 50 mls @ 100 mls/hr IVPB Q8H-IV [facility]; Protocol Last Admin: 02/25/18 09:18 Dose: 100 mls/hr Insulin Aspart (Novolog Vial Sliding Scale -) 1 vial SQ ACHS [facility]; Protocol Last Admin: 02/24/18 21:17 Dose: 2 units Metformin HCl (Glucophage Xr -) 1,000 mg PO BIDAC [facility] Last Admin: 02/25/18 06:47 Dose: 1,000 mg Nicotine (Nicoderm Patch -) 21 mg TD DAILY [facility] Last Admin: 02/25/18 09:18 Dose: 21 mg Pramipexole Dihydrochloride (Mirapex -) 0.125 mg PO HS [facility] Last Admin: 02/24/18 21:16 Dose: 0.125 mg Sitagliptin Phosphate (Januvia -) 100 mg PO DAILY@0700 [facility] Last Admin: 02/25/18 06:47 Dose: 100 mg - Objective Vital Signs: Vital Signs Temperature 98.1 F 02/25/18 06:00 Pulse Rate 54 L 02/25/18 06:00 Respiratory Rate 20 02/25/18 06:00 Blood Pressure 135/62 02/25/18 06:00 O2 Sat by Pulse Oximetry (%) 99 02/24/18 21:00 Constitutional: Yes: No Distress, Calm Cardiovascular: Yes: Regular Rate and Rhythm Respiratory: Yes: Regular, CTA Bilaterally Gastrointestinal: Yes: Normal Bowel Sounds, Soft Musculoskeletal: Yes: WNL Extremities: Yes: Other Neurological: Yes: Alert, Oriented Psychiatric: Yes: Alert, Oriented Labs: CBC, BMP 02/22/18 07:00 02/22/18 07:00 Assessment/Plan Problem List - Problems (1) Diabetes Code(s): E11.9 - TYPE 2 DIABETES MELLITUS WITHOUT COMPLICATIONS (2) Cellulitis Code(s): L03.90 - CELLULITIS, UNSPECIFIED (3) Diabetic foot ulcer Code(s): E11.621 - TYPE 2 DIABETES MELLITUS WITH FOOT ULCER; L97.509 - NON- PRESSURE CHRONIC ULCER OTH PRT UNSP FOOT W UNSP SEVERITY 4 osteo of the foot bone scan result noted plan patient with bone infection now with osteo patient will need zosyn 3.375 every 8 hourly for 5 weeks cbc bmp esr and crp to be followed weekly rest as per the team
[2018-02-25] MEDS: INSULIN SLIDING SCALE (NOVOLOG) 1 VIAL SQ SCH ×4 (11:43→22:25)
--- NOTE | 2018-02-25 13:51 | PN ---
Progress Note (short form) - Note Progress Note: Patient seen in bed. VSS. Tmax 98.1. +clean granulating wound left foot, +improved cellulitis, -drainage, -mal odor, inconclusive bone scan om? reactive surgical changes? Agree with ID note that patient needs antibiotics for 5 weeks. HBO requested due to chronicity of wound. Santyl dressing changes. Patient should follow up in [facility] once dcd from hospital.
[2018-02-25] MEDS ORDERED: INSULIN (NOVOLOG) ASPART 100 UNITS/ML 10ML VIAL ONE ×2 (16:08→21:35)
[2018-02-25] MEDS: PRAMIPEXOLE DIHYDROCHLORIDE 0.125 MG TABLET PO SCH (22:25)
--- NOTE | 2018-02-25 22:36 | PN ---
Progress Note, Physician - Current Medication List Current Medications: Active Medications Collagenase (Santyl -) 1 applic TP DAILY [facility]; Protocol Last Admin: 02/25/18 09:22 Dose: 1 applic Gabapentin (Neurontin -) 1,200 mg PO TID [facility] Last Admin: 02/25/18 22:25 Dose: 1,200 mg Heparin Sodium (Porcine) (Heparin -) 5,000 unit SQ BID [facility] Last Admin: 02/25/18 22:25 Dose: 5,000 unit IV Flush (Picc Line Flush) 8 ml IVPUSH PRN PRN PRN Reason: Protocol Piperacillin Sod/Tazobactam (Sod 3.375 gm/ Dextrose) 50 mls @ 100 mls/hr IVPB Q8H-IV [facility]; Protocol Last Admin: 02/25/18 17:03 Dose: 100 mls/hr Insulin Aspart (Novolog Vial Sliding Scale -) 1 vial SQ ACHS [facility]; Protocol Last Admin: 02/25/18 22:25 Dose: Not Given Metformin HCl (Glucophage Xr -) 1,000 mg PO BIDAC [facility] Last Admin: 02/25/18 16:55 Dose: 1,000 mg Nicotine (Nicoderm Patch -) 21 mg TD DAILY [facility] Last Admin: 02/25/18 09:18 Dose: 21 mg Pramipexole Dihydrochloride (Mirapex -) 0.125 mg PO HS [facility] Last Admin: 02/25/18 22:25 Dose: 0.125 mg Sitagliptin Phosphate (Januvia -) 100 mg PO DAILY@0700 [facility] Last Admin: 02/25/18 06:47 Dose: 100 mg - Objective Vital Signs: Vital Signs Temperature 98.4 F 02/25/18 22:33 Pulse Rate 57 L 02/25/18 22:33 Respiratory Rate 19 02/25/18 22:33 Blood Pressure 142/72 02/25/18 22:33 O2 Sat by Pulse Oximetry (%) 94 L 02/25/18 09:00 Labs: CBC, BMP 02/22/18 07:00 02/22/18 07:00
[2018-02-26] MEDS ORDERED: PIPERACILLIN/TAZOBACTAM 3.375 GM VIAL IVPB ONE ×2 (01:34→09:42)
[2018-02-26] MEDS ORDERED: DEXTROSE 5%-WATER - 50 ML IVPB ONE ×2 (01:35→09:42)
[2018-02-26] MEDS: PIPERACILLIN/TAZOB 3.375 GM 3.375 GM in DEXTROSE 5%-WATER - 50 ML IVPB SCH ×2 (02:10→09:51)
[2018-02-26] MEDS: INSULIN SLIDING SCALE (NOVOLOG) 1 VIAL SQ SCH ×2 (06:12→11:54)
[2018-02-26] MEDS: sitaGLIPtin PHOSPHATE 100 MG TABLET (FP) PO SCH (06:12)
[2018-02-26] MEDS: GABAPENTIN 400 MG CAPSULE (FP) PO SCH ×2 (06:12→14:11)
[2018-02-26 08:32] VITALS: PULSE 52
[2018-02-26] MEDS: COLLAGENASE CLOSTRIDIUM HIST. 30 GRAMS TUBE TP SCH (09:50)
[2018-02-26] MEDS: NICOTINE 21 MG/24 HOURS TOPICAL PATCH TD SCH (09:52)
[2018-02-26] MEDS: HEPARIN NA (PORCINE) 5,000 UNITS/ML 1ML VIAL SQ SCH (09:53)
--- NOTE | 2018-02-26 10:22 | DS ---
Physical Examination Vital Signs: Vital Signs Temperature 97.9 F 02/26/18 06:00 Pulse Rate 52 L 02/26/18 06:00 Respiratory Rate 20 02/26/18 06:00 Blood Pressure 150/71 02/26/18 06:00 O2 Sat by Pulse Oximetry (%) 98 02/25/18 21:00 Labs: CBC, BMP 02/22/18 07:00 02/22/18 07:00 Discharge Summary Reason For Visit: DIABETIC FOOD ULCER, CELLULITIS, FAILURE OF Current Active Problems Cellulitis (Acute) Diabetes (Acute) Diabetic foot ulcer (Acute) Failure of outpatient treatment (Acute) Smoking (Acute) Condition: Stable - Instructions Referrals: ON STAFF,NOT [Primary Care Provider] - - Home Medications Comprehensive Discharge Medication List: Ambulatory Orders Gabapentin [Neurontin] 1,200 mg PO TID 02/20/18 Metformin HCl [Metformin HCl ER] 1 tab PO BID 02/20/18 Sitagliptin Phosphate [Januvia] 100 tab PO DAILY 02/20/18 Pramipexole Dihydrochloride [Mirapex -] 0.125 mg PO HS 02/22/18 Piperacillin/Tazob 3.375 gm [Zosyn -] 3.375 gm IVPB Q8H-IV #30 vial 02/26/18 dc home ID to order abx picc line
[2018-02-26 11:05] VITALS: BP 123/71; TEMP 98.4
--- NOTE | 2018-02-26 12:36 | PN ---
Progress Note, Physician History of Present Illness: stable no issues spoke with the pharmacy patient for picc line - Current Medication List Current Medications: Active Medications Collagenase (Santyl -) 1 applic TP DAILY [facility]; Protocol Last Admin: 02/26/18 09:50 Dose: 1 applic Gabapentin (Neurontin -) 1,200 mg PO TID [facility] Last Admin: 02/26/18 06:12 Dose: 1,200 mg Heparin Sodium (Porcine) (Heparin -) 5,000 unit SQ BID [facility] Last Admin: 02/26/18 09:53 Dose: Not Given IV Flush (Picc Line Flush) 8 ml IVPUSH PRN PRN PRN Reason: Protocol Piperacillin Sod/Tazobactam (Sod 3.375 gm/ Dextrose) 50 mls @ 100 mls/hr IVPB Q8H-IV [facility]; Protocol Last Admin: 02/26/18 09:51 Dose: 100 mls/hr Insulin Aspart (Novolog Vial Sliding Scale -) 1 vial SQ ACHS [facility]; Protocol Last Admin: 02/26/18 06:12 Dose: Not Given Metformin HCl (Glucophage Xr -) 1,000 mg PO BIDAC [facility] Last Admin: 02/26/18 06:12 Dose: 1,000 mg Nicotine (Nicoderm Patch -) 21 mg TD DAILY [facility] Last Admin: 02/26/18 09:52 Dose: 21 mg Pramipexole Dihydrochloride (Mirapex -) 0.125 mg PO HS [facility] Last Admin: 02/25/18 22:25 Dose: 0.125 mg Sitagliptin Phosphate (Januvia -) 100 mg PO DAILY@0700 [facility] Last Admin: 02/26/18 06:12 Dose: 100 mg - Objective Vital Signs: Vital Signs Temperature 98.4 F 02/26/18 10:00 Pulse Rate 52 L 02/26/18 06:00 Respiratory Rate 20 02/26/18 06:00 Blood Pressure 123/71 02/26/18 10:00 O2 Sat by Pulse Oximetry (%) 98 02/25/18 21:00 Constitutional: Yes: No Distress, Calm Cardiovascular: Yes: Regular Rate and Rhythm Respiratory: Yes: Regular, CTA Bilaterally Gastrointestinal: Yes: Normal Bowel Sounds, Soft Musculoskeletal: Yes: WNL Extremities: Yes: Other Wound/Incision: Yes: Dressing Dry and Intact Neurological: Yes: Alert, Oriented Psychiatric: Yes: Alert, Oriented Labs: CBC, BMP 02/22/18 07:00 02/22/18 07:00 Assessment/Plan Problem List - Problems (1) Diabetes Code(s): E11.9 - TYPE 2 DIABETES MELLITUS WITHOUT COMPLICATIONS (2) Cellulitis Code(s): L03.90 - CELLULITIS, UNSPECIFIED (3) Diabetic foot ulcer Code(s): E11.621 - TYPE 2 DIABETES MELLITUS WITH FOOT ULCER; L97.509 - NON- PRESSURE CHRONIC ULCER OTH PRT UNSP FOOT W UNSP SEVERITY 4 osteo of the foot bone scan result noted plan patient with bone infection now with osteo continue current mgmt wound care labs rest as per the team
== END 2018-02-26 14:30 | disposition home or self-care (01) | DRG 638 ==
LOC: JER 09:54 → JERBED 15:27 → J6S 18:16
PROVIDERS: ADMIT Internal Medicine; ATTEND Internal Medicine
PROC: 02HV33Z Insertion of Infusion Device into Superior Vena Cava, Percutaneous Approach (ICD-10-PCS; principal; 2018-02-26)
PROC: B518ZZA Fluoroscopy of Superior Vena Cava, Guidance (ICD-10-PCS; 2018-02-26)
DX: E11.621 Type 2 diabetes mellitus with foot ulcer (principal); L97.428 Non-pressure chronic ulcer of left heel and midfoot with other specified severity; L03.116 Cellulitis of left lower limb; M86.9 Osteomyelitis, unspecified; E11.69 Type 2 diabetes mellitus with other specified complication; E11.610 Type 2 diabetes mellitus with diabetic neuropathic arthropathy; F17.210 Nicotine dependence, cigarettes, uncomplicated; I44.4 Left anterior fascicular block; I45.10 Unspecified right bundle-branch block; Z78.9 Other specified health status
CPT/HCPCS: 36415; 36569; 71046-TC-FY; 73630-TC-LT; 78315-TC; 80053; 82962; 83036; 85025; 85651; 86140; 87040; 93005; 93010; 93971-TC; 99283-25; A9503; J1644

== ENCOUNTER 2018-03-20 16:29 | Emergency (ER) | payer OTHER ==
--- NOTE | 2018-03-20 16:38 | PDOC ---
Rapid Medical Evaluation Chief Complaint: Head/Neck problem Time Seen by Provider: 03/20/18 16:35 Medical Evaluation: Allergies Allergy/AdvReac Type Severity Reaction Status Date / Time sulfamethoxazole Allergy Verified 02/21/18 10:00 [From Bactrim] trimethoprim [From Bactrim] Allergy Verified 02/21/18 10:00 03/20/18 16:35 I have performed a brief in person evaluation of this patient. The patient present with a CC of: Head Injury Pertinent PE findings: Skin: Pt has hematoma to the top/back of his head with dried blood. No active bleeding. Lungs Clear Heart RRR Abd: Soft, non distended. Neuro: Appropriate affect Psych: Appropriate affect I have ordered the following: Head CT The patient will proceed to the ED for further evaluation: Discharge Disposition - Diagnosis Head injury Qualifiers: Encounter type: initial encounter Qualified Code(s): S09.90XA - Unspecified injury of head, initial encounter - Referrals - Patient Instructions - Post Discharge Activity
[2018-03-20 16:46] VITALS: BP 147/73; PULSE 68; TEMP 98; BMI 31.5
--- NOTE | 2018-03-20 17:37 | PDOC ---
History of Present Illness - General Chief Complaint: Head/Neck problem Stated Complaint: HEAD INJURY Time Seen by Provider: 03/20/18 16:35 History Source: Patient Exam Limitations: No Limitations - History of Present Illness Initial Comments: 03/20/18 17:35 HISTORY OF PRESENT ILLNESS: This 67-year-old male with history of NIDDM diabetic ulcer to the base of his left foot of presents emergency departments for evaluation status post head trauma. Patient states she was getting ready for bed last night when he slipped on his bathroom floor falling back and striking the back of his head on the tile floor. He denies any loss of consciousness at the time. Patient awoke this morning noted some blood on his pillow but came to the hospital for his usual wound care and the hyperbaric chamber and in the wound clinic. While getting hyperbaric therapy blood was noted on the pillow and he was recommended to come to the emergency department. After hyperbaric she went to the wound clinic with a sulcal blood again and sent into the emergency department for evaluation. Patient denies any hearing loss, blurry vision, dizziness, nausea, vomiting, headaches, chest pain, shortness of breath. No recent travel or sick contacts. PAST MEDICAL HISTORY: NIDDM, Charcot foot ulcer SURGICAL HISTORY: Denies ALLERGIES: No known drug allergies REVIEW OF SYSTEMS General/Constitutional: Denies fever or chills. Denies weakness, weight change. HEENT: Denies change in vision. Denies ear pain or discharge. Denies sore throat. Head wound to occiput. Cardiovascular: Denies chest pain or shortness of breath. Respiratory: Denies cough, wheezing, or hemoptysis. Gastrointestinal: Denies nausea, vomiting, diarrhea or constipation. Denies rectal bleeding. Genitourinary: Denies dysuria, frequency, or change in urination. Musculoskeletal: Denies joint or muscle swelling or pain. Denies neck or back pain. Skin and breasts: Denies rash or easy bruising. Neurologic: Denies headache, vertigo, loss of consciousness, or loss of sensation. Psychiatric: Denies depression or anxiety. Endocrine: Denies increased thirst. Denies abnormal weight change. Hematologic/Lymphatic: Denies anemia, easy bleeding, or history of blood clots. Allergic/Immunologic: Denies hives or skin allergy. Denies latex allergy. PHYSICAL EXAM General Appearance: Well-appearing, appropriately dressed. No apparent distress , no intoxication. HEENT: EOMI, PERRLA, normal ENT inspection, normal voice, pharynx normal. No conjunctival pallor. No photophobia, scleral icterus. No hemotympanum present. Erythema noted to bilateral TMs. No septal hematomas noted. Approximate 3.5 cm curved superficial laceration noted to the occipital parietal junction. Galea intact. Neck: Supple. Trachea midline. No tenderness, rigidity, carotid bruit, stridor , lymphadenopathy, or thyromegaly. Respiratory/Chest: Lungs CTAB. No shortness of breath, chest tenderness, respiratory distress, accessory muscle use. No crackles, rales, rhonchi, stridor , wheezing, dullness Cardiovascular: RRR. S1, S2. No JVD, murmur, bradycardia, tachycardia. Vascular Pulses: Dorsalis-Pedis (R): 2+, Dorsalis-Pedis (L): 2+ Gastrointestinal/Abdominal: Normal bowel sounds. Abdomen soft, non-distended. No tenderness or rebound tenderness. No organomegaly, pulsatile mass, guarding, hernia, hepatomegaly, splenomegaly. Lymphatic: No adenopathy, tenderness. Musculoskeletal/Extremities: Normal inspection. FROM of all extremities, normal capillary refill. Pelvis Stable. No CVA tenderness. No tenderness to extremities, pedal edema, swelling, erythema or deformity. Integumentary: Approximate 3.5 cm curved superficial laceration noted to the occipital parietal junction. Galea intact. Neurologic: hospice director II-XII intact. Fully oriented, alert. Appropriate mood/affect. Motor strength 5/5. No appreciable EOM palsy, facial droop or sensory deficit. Past History - Past Medical History Allergies/Adverse Reactions: Allergies Allergy/AdvReac Type Severity Reaction Status Date / Time sulfamethoxazole Allergy Verified 03/20/18 16:46 [From Bactrim] trimethoprim [From Bactrim] Allergy Verified 03/20/18 16:46 Home Medications: Ambulatory Orders Gabapentin [Neurontin] 1,200 mg PO TID 02/20/18 Metformin HCl [Metformin HCl ER] 1 tab PO BID 02/20/18 Sitagliptin Phosphate [Januvia] 100 tab PO DAILY 02/20/18 COPD: No Diabetes: Yes Other medical history: neuropathy - Surgical History Orthopedic Surgery: Yes (charcots foot surgery left 2015) - Immunization History Immunization Up to Date: Yes - Suicide/Smoking/Psychosocial Hx Smoking History: Current every day smoker Have you smoked in the past 12 months: Yes Number of Cigarettes Smoked Daily: 20 Information on smoking cessation initiated: No 'Breaking Loose' booklet given: 02/21/18 Hx Alcohol Use: Yes Drug/Substance Use Hx: No Substance Use Type: None, Alcohol Hx Substance Use Treatment: No *Physical Exam - Vital Signs Last Vital Signs Temp Pulse Resp BP Pulse Ox 98.0 F 68 17 147/73 100 03/20/18 16:37 03/20/18 16:37 03/20/18 16:37 03/20/18 16:37 03/20/18 16:37 Procedures - Consent Consent obtained: Verbal, From Patient - Laceration/Wound Repair Left Posterior Head Wound Length: 2.6 to 5.0 cm Wound Explored: clean Wound's Depth, Shape: irregular Irrigated w/ Saline: Yes Betadine Prep: Yes Anesthesia: 1% Lidocaine w/ Epi Amount of Anesthetic (ccs): 4 Wound Debrided: minimal Wound Repaired With: Jim Number of Sutures: 5 Layer Closure: No Sterile Dressing Applied: Yes Splint Applied: No Sling Applied: No Progress: 03/20/18 18:39 pt tolerated well Medical Decision Making - Medical Decision Making 03/20/18 17:43 A/P: 67-year-old male with head trauma Approximately 3.5 cm irregular superficial laceration noted to the parieto- occipital junction Galea intact No hemotympanum No septal hematomas noted Cranial nerves II through XII grossly intact Head CT, tetanus, laceration repair- see note for details 03/20/18 18:06 CT of the head as read by Dr. Goins: No CT evidence of acute intracranial pathology. Left parietal scalp hematoma with associated focal laceration. There is at least moderate nonspecific fluid accumulation within the right mastoid air cells. No gross bone erosion or fracture is visualized. There is no visualization of hemotympanum. No tenderness to palpation of bilateral tragus or mastoid processes. There is no clinical evidence of mastoiditis. Patient is taking IV Zosyn for his wound anyway which will cover everything except for MRSA. Dr. Car paged to be made aware of CT findings with the potential to possibly add vancomycin when necessary. 03/20/18 18:46 I discussed the physical exam findings, ancillary test results and final diagnoses with the patient. I answered all of the patient's questions. The patient was satisfied with the care received and felt comfortable with the discharge plan and treatment plan. The patient will call their primary care physician within 24 hours to arrange follow-up and will return to the Emergency Department with any new, persistent or worsening symptoms. 03/20/18 20:03 Case discussed with patient's ID doctor Dr. Car. Dr. Car agrees that there is no need to add antibiotics at this time, for what is most likely an incidental finding. Hospitalist office contacted to discuss case with Dr. Avery who will be taking care of patient during hyperbaric treatment tomorrow. Results relate to attending physician Dr. Waller to make Dr. Avery aware to adjust treatment as needed for the fluid in the right mast air cells. *DC/Admit/Observation/Transfer Diagnosis at time of Disposition: Laceration Head injury Qualifiers: Encounter type: initial encounter Qualified Code(s): S09.90XA - Unspecified injury of head, initial encounter - Discharge Dispostion Disposition: HOME Condition at time of disposition: Stable Decision to Admit order: No - Referrals - Patient Instructions Printed Discharge Instructions: DI for Closed Head Injury Additional Instructions: Rest, no exercise or gym until ijm are removed May use ice packs tonight as needed for swelling and pain Put a towel over pillow/old pillowcase to avoid damage from bacitracin and bleeding to linens until jim removed Use antibiotic cream/ointment once in the morning once at night until jim are removed May use Tylenol or Motrin for pain relief Return to emergency department for worsening pain, swelling, bleeding, or evidence of serious head injury Staple removal in 5-7 days - Post Discharge Activity
[2018-03-20] MEDS ORDERED: DIPHTH,PERTUSS(ACELL),TET 0.5 ML DISP.SYRIN IM ONE (18:01)
[2018-03-20] MEDS ORDERED: GABAPENTIN 300 MG CAPSULE (FP) PO ONE (18:09)
[2018-03-20] MEDS ORDERED: GABAPENTIN 400 MG CAPSULE (FP) PO ONE (18:15)
== END 2018-03-20 19:02 | disposition home or self-care (01) ==
LOC: JERFT 16:29
PROC: 0HQ0XZZ Repair Scalp Skin, External Approach (ICD-10-PCS; principal; 2018-03-20)
PROC: 3E0234Z Introduction of Serum, Toxoid and Vaccine into Muscle, Percutaneous Approach (ICD-10-PCS; 2018-03-20)
DX: S01.01XA Laceration without foreign body of scalp, initial encounter (principal); S00.03XA Contusion of scalp, initial encounter; W01.198A Fall on same level from slipping, tripping and stumbling with subsequent striking against other object, initial encounter; Y93.89 Activity, other specified; Y92.012 Bathroom of single-family (private) house as the place of occurrence of the external cause; Y99.8 Other external cause status; E11.621 Type 2 diabetes mellitus with foot ulcer; L97.428 Non-pressure chronic ulcer of left heel and midfoot with other specified severity; Z79.84 Long term (current) use of oral hypoglycemic drugs; F17.210 Nicotine dependence, cigarettes, uncomplicated; Z88.2 Allergy status to sulfonamides; G62.9 Polyneuropathy, unspecified
CPT/HCPCS: 11042; 15275; 15276; 70450-TC; 82962; 90715; 99281-25; G0277; Q4101-JD

== ENCOUNTER 2018-07-02 20:38 | Inpatient (IN) | payer OTHER ==
--- NOTE | 2018-07-02 21:15 | PDOC ---
Rapid Medical Evaluation Medical Evaluation: Allergies Allergy/AdvReac Type Severity Reaction Status Date / Time sulfamethoxazole Allergy Verified 03/20/18 16:46 [From Bactrim] trimethoprim [From Bactrim] Allergy Verified 03/20/18 16:46 07/02/18 21:13 I have performed a brief in-person evaluation of this patient. The patient presents with a chief complaint of: sent in by podiatry for concern of LLE cellulitis (redness/warm). No pain, f/c Pertinent physical exam findings:Stable and in NAD, defer rest of exam to ED provider I have ordered the following:labs/XR The patient will proceed to the ED for further evaluation. Discharge Disposition - Diagnosis Cellulitis Qualifiers: Site of cellulitis: extremity Site of cellulitis of extremity: lower extremity Laterality: left Qualified Code(s): L03.116 - Cellulitis of left lower limb - Referrals - Patient Instructions - Post Discharge Activity
[2018-07-02 21:33] LABS: BASO % 0.6 % (0-2.0); EOS % 2.6 % (0-4.5); HEMATOCRIT 46.7 % (35.4-49); HEMOGLOBIN 16.2 GM/dL (11.7-16.9); LYMPH % 14.3 % (8-40); MCH 32.9 pg (25.7-33.7); MCHC 34.6 g/dl (32.0-35.9); MEAN PLT VOLUME 8.3 fl (7.5-11.1); MONO % 8.4 % (3.8-10.2); NEUT % 74.1 % (42.8-82.8); PLATELET COUNT 184 K/MM3 (134-434); RBC 4.92 M/mm3 (4.00-5.60); RDW 13.7 % (11.9-15.9); WHITE BLOOD COUNT 9.8 K/mm3 (4.0-10.0)
[2018-07-02 22:31] LABS: ALBUMIN 3.6 g/dl (3.4-5.0); ALK PHOS 121 U/L (45-117); ANION GAP 6 MMOL/L (8-16); BILIRUBIN,TOTAL 0.2 mg/dL (0.2-1); BLOOD UREA NITROGEN 10 mg/dL (7-18); CALCIUM 10.2 mg/dL (8.5-10.1); CHLORIDE 99 mmol/L (98-107); CO2 31 mmol/L (21-32); CREATININE 0.8 mg/dL (0.55-1.3); GLUCOSE,RANDOM 75 mg/dL (74-106); POTASSIUM 4.1 mmol/L (3.5-5.1); SGOT/AST 14 U/L (15-37); SGPT/ALT 22 U/L (13-61); SODIUM 136 mmol/L (136-145); TOT PROT 7.1 g/dl (6.4-8.2)
--- NOTE | 2018-07-02 23:00 | PDOC ---
History of Present Illness <Laura Hutson - Last Filed: 07/02/18 23:36> - General History Source: Patient Exam Limitations: No Limitations - History of Present Illness Initial Comments: 07/02/18 23:48 The patient is a 67 year old male with a significant PMH of diabetes who presents to the emergency department with a non-healing diabetic left foot wound. Patient was seen by his behavioral science chair, Dr. Mitchell, for IV antibiotics for redness and warmth to the left foot. Patient denies any foot pain, fever, chills. Patient has no other complaints today. Allergies: sulfa, trimethoprim Past surgical history: None reported. Social history: No reported alcohol, drug, or cigarette use. <Bren Byrd - Last Filed: 07/02/18 23:59> - General Chief Complaint: Wound Stated Complaint: INFECTION LEFT FOOT Time Seen by Provider: 07/02/18 23:00 Past History - Past Medical History COPD: No Diabetes: Yes - Surgical History Orthopedic Surgery: Yes (charcots foot surgery left 2015) - Immunization History Immunization Up to Date: Yes - Suicide/Smoking/Psychosocial Hx Smoking History: Current every day smoker Have you smoked in the past 12 months: Yes Number of Cigarettes Smoked Daily: 20 Information on smoking cessation initiated: No 'Breaking Loose' booklet given: 02/21/18 Hx Alcohol Use: Yes Drug/Substance Use Hx: No Substance Use Type: None, Alcohol Hx Substance Use Treatment: No <Laura Hutson - Last Filed: 07/02/18 23:36> <Bren Byrd - Last Filed: 07/02/18 23:59> - Past Medical History Allergies/Adverse Reactions: Allergies Allergy/AdvReac Type Severity Reaction Status Date / Time sulfamethoxazole Allergy Verified 07/02/18 21:14 [From Bactrim] trimethoprim [From Bactrim] Allergy Verified 07/02/18 21:14 Home Medications: Ambulatory Orders Gabapentin [Neurontin] 1,200 mg PO TID 02/20/18 Sitagliptin Phosphate [Januvia] 100 tab PO DAILY 02/20/18 metFORMIN HCL [Metformin ER Osmotic] 1 tab PO BID 02/20/18 Review of Systems - Review of Systems Able to Perform ROS?: Yes Comments:: 07/02/18 23:57 ADULT ROS GENERAL/CONSTITUTIONAL: No fever or chills. No weakness. HEAD, EYES, EARS, NOSE AND THROAT: No change in vision. No ear pain or discharge. No sore throat. GASTROINTESTINAL: No nausea, vomiting, diarrhea or constipation. GENITOURINARY: No dysuria, frequency, or change in urination. CARDIOVASCULAR: No chest pain or shortness of breath. RESPIRATORY: No cough, wheezing, or hemoptysis. MUSCULOSKELETAL: No joint or muscle swelling or pain. No neck or back pain. SKIN: (+) Left diabetic foot ulcer. NEUROLOGIC: No headache, vertigo, loss of consciousness, or change in strength/ sensation. ENDOCRINE: No increased thirst. No abnormal weight change. HEMATOLOGIC/LYMPHATIC: No anemia, easy bleeding, or history of blood clots. ALLERGIC/IMMUNOLOGIC: No hives or skin allergy. <Bren Byrd - Last Filed: 07/02/18 23:59> *Physical Exam - Vital Signs Last Vital Signs Temp Pulse Resp BP Pulse Ox 98.1 F 80 18 120/64 100 07/02/18 21:10 07/02/18 21:10 07/02/18 21:10 07/02/18 21:10 07/02/18 21:10 <Laura Hutson - Last Filed: 07/02/18 23:36> - Vital Signs Last Vital Signs Temp Pulse Resp BP Pulse Ox 98.1 F 80 18 120/64 100 07/02/18 21:10 07/02/18 21:10 07/02/18 21:10 07/02/18 21:10 07/02/18 21:10 - Physical Exam Comments: 07/02/18 23:49 ADULT PHYSICAL EXAM Constitutional: Awake, alert, oriented. No acute distress. Cardiovascular: Regular rate. Regular rhythm. S1, S2 regular. Distal pulses are 2+ and symmetric. Pulmonary/Chest: No evidence of respiratory distress. Clear to auscultation bilaterally No wheezing, rales or rhonchi. Abdominal: Soft and non-distended. There is no tenderness. Musculoskeletal: No edema. No cyanosis. No clubbing. Full range of motion in all extremities. No calf tenderness. Radial/pedal pulses are intact and 2+ bilaterally Skin: (+) Left lower extremity has a diabetic foot wound on the medial aspect and sole of the foot arch. (+) Degenerative changes to the left foot associated with charcot's foot surgery. (+) Redness and warmth to the mid tib/ fib of the left foot. (+) Skin tear on the right anterior tibia, no surrounding erythema. (+) Callous on the right foot medially, no wounds. Neurological: Alert and oriented to person, place, and time. Cranial nerves II -XII are grossly intact. Normal speech. Strength is grossly symmetric. No sensory deficits. Psychiatric: Good eye contact. Normal interaction, affect and behavior. <Bren Byrd - Last Filed: 07/02/18 23:59> Moderate Sedation - Procedure Monitoring Vital Signs: Procedure Monitoring Vital Signs Temperature 98.1 F 07/02/18 21:10 Pulse Rate 80 07/02/18 21:10 Respiratory Rate 18 07/02/18 21:10 Blood Pressure 120/64 07/02/18 21:10 O2 Sat by Pulse Oximetry (%) 100 07/02/18 21:10 <Laura Hutson - Last Filed: 07/02/18 23:36> - Procedure Monitoring Vital Signs: Procedure Monitoring Vital Signs Temperature 98.1 F 07/02/18 21:10 Pulse Rate 80 07/02/18 21:10 Respiratory Rate 18 07/02/18 21:10 Blood Pressure 120/64 07/02/18 21:10 O2 Sat by Pulse Oximetry (%) 100 07/02/18 21:10 <Bren Byrd - Last Filed: 07/02/18 23:59> ED Treatment Course - LABORATORY CBC & Chemistry Diagram: 07/02/18 21:20 07/02/18 21:20 - ADDITIONAL ORDERS Additional order review: Laboratory Results 07/02/18 21:20 Sodium 136 Potassium 4.1 Chloride 99 Carbon Dioxide 31 Anion Gap 6 L BUN 10 Creatinine 0.8 Creat Clearance w eGFR > 60 Random Glucose 75 Calcium 10.2 H Total Bilirubin 0.2 AST 14 L ALT 22 Alkaline Phosphatase 121 H Total Protein 7.1 Albumin 3.6 07/02/18 21:20 RBC 4.92 MCV 95.0 MCHC 34.6 RDW 13.7 MPV 8.3 D Neutrophils % 74.1 Lymphocytes % 14.3 D Monocytes % 8.4 Eosinophils % 2.6 Basophils % 0.6 <Laura Hutson - Last Filed: 07/02/18 23:36> - LABORATORY CBC & Chemistry Diagram: 07/02/18 21:20 07/02/18 21:20 - ADDITIONAL ORDERS Additional order review: Laboratory Results 07/02/18 07/02/18 22:45 21:20 Sodium 136 Potassium 4.1 Chloride 99 Carbon Dioxide 31 Anion Gap 6 L BUN 10 Creatinine 0.8 Creat Clearance w eGFR > 60 Random Glucose 75 Calcium 10.2 H Total Bilirubin 0.2 AST 14 L ALT 22 Alkaline Phosphatase 121 H C-Reactive Protein 0.6 H Total Protein 7.1 Albumin 3.6 07/02/18 21:20 RBC 4.92 MCV 95.0 MCHC 34.6 RDW 13.7 MPV 8.3 D Neutrophils % 74.1 Lymphocytes % 14.3 D Monocytes % 8.4 Eosinophils % 2.6 Basophils % 0.6 - Medications Given in the ED: ED Medications Discontinued Medications Generic Name Dose Route Start Last Admin Trade Name Freq PRN Reason Stop Dose Admin Sodium Chloride 500 ml 07/02/18 23:23 07/02/18 23:41 Normal Saline - IV 07/02/18 23:24 500 ml ONCE ONE Administration <Bren Byrd - Last Filed: 07/02/18 23:59> Medical Decision Making - Medical Decision Making 07/02/18 23:26 a/p: 67yo male with diabetic foot wound that is not healing and worsening and now with LLE cellulitis -sent by Dr. Aragon for admission for iv abx -2 diabetic foot wounds to the L foot -cellulitis to L leg -nonhealing L foot wounds -will give broad spectrum abx -will send blood cultures -will need admission -xray foot, cxr 07/02/18 23:33 labs sent from [facility] - normal wbc microblog sent to [facility] 07/02/18 23:36 case discussed with [facility] who accepts pt to service <Laura Hutson - Last Filed: 07/02/18 23:36> *DC/Admit/Observation/Transfer - Discharge Dispostion Decision to Admit order: Yes - Attestations Physician Attestion: 07/02/18 23:37 I, Dr. Laura Hutson, DO, attest that this document has been prepared under my direction and personally reviewed by me in its entirety. I further attest, that it accurately reflects all work, treatment, procedures and medical decision -making performed by me. <Laura Hutson - Last Filed: 07/02/18 23:36> <Bren Byrd - Last Filed: 07/02/18 23:59> Diagnosis at time of Disposition: Diabetic foot ulcer Cellulitis Qualifiers: Site of cellulitis: extremity Site of cellulitis of extremity: lower extremity Laterality: left Qualified Code(s): L03.116 - Cellulitis of left lower limb - Discharge Dispostion Condition at time of disposition: Fair
[2018-07-02] MEDS ORDERED: VANCOMYCIN 1 GM in D5W (PRE-DOCKED) 1,000 MG/250 ML IVPB ONE (23:23)
[2018-07-02] MEDS ORDERED: SODIUM CHLORIDE 0.9% 1000 ML INFUS.BAG IV ONE (23:23)
[2018-07-02] MEDS ORDERED: PIPERACILLIN/TAZOB 3.375 GM 3.375 GM in DEXTROSE 5%-WATER - 50 ML IVPB ONE (23:23)
[2018-07-02] MEDS ORDERED: VANCOMYCIN 1 GRAM (PRE-DOCKED) 1,000 MG/250 ML BAG IVPB ONE (23:40)
[2018-07-02] MEDS ORDERED: PIPERACILLIN/TAZOB 3.375 GM 3.375 GM/50 ML BAG IVPB ONE (23:40)
--- NOTE | 2018-07-03 00:30 | HP ---
<Nelly Olson - Last Filed: 07/03/18 01:16> CHIEF COMPLAINT: LLE cellulitis PCP: HISTORY OF PRESENT ILLNESS: 67 y/o male with PMH of DM, recurrent LLE wound , neuropathy, previous history of osteomyelitis presents to the ED after being sent in from Dr. Martinez office for worsening LLE cellulitis and plantar foot ulcer. Of note, patient was here back in the end of jan with similar complaints, found to have osteomyelitis of the left foot and was put on a 30 day course of zosyn which he completed. He has not noticed any real changes in the foot itself, but has noticed that his LLE has gotten a bit more red and tender. however, he denies any fevers/chills or recent illnesses. ER course was notable for: (1) vital wnl; CBC/CMP wnl (2) XRAY of left foot/ankle unclear if osteo is present given that patient has hardware from previous surgery (3) given vanc/zosyn Recent Travel: denies PAST MEDICAL HISTORY: see above PAST SURGICAL HISTORY: charcot foot surgery (2015) Social History: Smokin ppd for 30 years Alcohol: drinks vodka drinks (around 6-8 oz) 4-5 days a week Drugs: occasional marijuana use back in college Family History: DM on mothers side Allergies sulfamethoxazole [From Bactrim] Allergy (Verified 07/02/18 21:14) trimethoprim [From Bactrim] Allergy (Verified 07/02/18 21:14) HOME MEDICATIONS: Home Medications Medication Instructions Recorded Gabapentin [Neurontin] 1,200 mg PO TID 02/20/18 Sitagliptin Phosphate [Januvia] 100 tab PO DAILY 02/20/18 metFORMIN HCL [Metformin ER 1 tab PO BID 02/20/18 Osmotic] REVIEW OF SYSTEMS CONSTITUTIONAL: Absent: fever, chills, diaphoresis, generalized weakness, malaise, loss of appetite, weight change HEENT: Absent: rhinorrhea, nasal congestion, throat pain, throat swelling, difficulty swallowing, mouth swelling, ear pain, eye pain, visual changes CARDIOVASCULAR: Absent: chest pain, syncope, palpitations, irregular heart rate, lightheadedness , peripheral edema RESPIRATORY: Absent: cough, shortness of breath, dyspnea with exertion, orthopnea, wheezing, stridor, hemoptysis GASTROINTESTINAL: Absent: abdominal pain, abdominal distension, nausea, vomiting, diarrhea, constipation, melena, hematochezia GENITOURINARY: Absent: dysuria, frequency, urgency, hesitancy, hematuria, flank pain, genital pain MUSCULOSKELETAL: Absent: myalgia, arthralgia, joint swelling, back pain, neck pain SKIN: Absent: rash, itching, pallor HEMATOLOGIC/IMMUNOLOGIC: Absent: easy bleeding, easy bruising, lymphadenopathy, frequent infections ENDOCRINE: Absent: unexplained weight gain, unexplained weight loss, heat intolerance, cold intolerance NEUROLOGIC: Absent: headache, focal weakness or paresthesias, dizziness, unsteady gait, seizure, mental status changes, bladder or bowel incontinence PSYCHIATRIC: Absent: anxiety, depression, suicidal or homicidal ideation, hallucinations. PHYSICAL EXAMINATION Vital Signs - 24 hr 07/02/18 21:10 Temperature 98.1 F Pulse Rate 80 Respiratory 18 Rate Blood Pressure 120/64 O2 Sat by Pulse 100 Oximetry (%) GENERAL: Awake, alert, and fully oriented, in no acute distress.. EYES: EOMI; PEERLA, no scleral icterus NECK: no JVD, no lymphdenoapthy LUNGS: CTA B/L; no rales, rhonchi or wheezing HEART: Regular rate and rhythm, normal S1 and S2 without murmur, rub or gallop. ABDOMEN: Soft, nontender, not distended, normoactive bowel sounds, no guarding, no rebound, no masses. No hepatomegaly or splenomegaly. MUSCULOSKELETAL: Normal range of motion at all joints. No bony deformities or tenderness. No CVA tenderness. EXTREMITIES: LLE warm; red; tender; left foot plantar aspect quarter sized open ulcer hard to touch; no drainage or foul smell appreciated; L medial aspect sima shaped ulcer no drainage appreciated; RLE chronic venous statis changes with varicose veins- palpable dorsalis pedis pulses and tibialis B/L NEUROLOGICAL: Cranial nerves II-XII intact. Normal speech. Normal gait. PSYCHIATRIC: Cooperative. Good eye contact. Appropriate mood and affect. SKIN: Warm, dry, normal turgor, no rashes or lesions noted, normal capillary refill. Laboratory Results - last 24 hr 07/02/18 07/02/18 07/02/18 21:20 21:20 21:22 WBC 9.8 RBC 4.92 Hgb 16.2 Hct 46.7 MCV 95.0 MCH 32.9 MCHC 34.6 RDW 13.7 Plt Count 184 MPV 8.3 D Absolute Neuts (auto) 7.2 Neutrophils % 74.1 Lymphocytes % 14.3 D Monocytes % 8.4 Eosinophils % 2.6 Basophils % 0.6 Nucleated RBC % 0 ESR 6 Sodium 136 Potassium 4.1 Chloride 99 Carbon Dioxide 31 Anion Gap 6 L BUN 10 Creatinine 0.8 Creat Clearance w eGFR > 60 Random Glucose 75 Calcium 10.2 H Total Bilirubin 0.2 AST 14 L ALT 22 Alkaline Phosphatase 121 H C-Reactive Protein Total Protein 7.1 Albumin 3.6 07/02/18 22:45 WBC RBC Hgb Hct MCV MCH MCHC RDW Plt Count MPV Absolute Neuts (auto) Neutrophils % Lymphocytes % Monocytes % Eosinophils % Basophils % Nucleated RBC % ESR Sodium Potassium Chloride Carbon Dioxide Anion Gap BUN Creatinine Creat Clearance w eGFR Random Glucose Calcium Total Bilirubin AST ALT Alkaline Phosphatase C-Reactive Protein 0.6 H Total Protein Albumin ASSESSMENT/PLAN: 67 y/o male with PMH of DM, recurrent LLE wound, neuropathy who was sent in from Dr. Martinez office for worsening LLE cellulitis and ulcers. # LLE cellulitis XRAY inconclusive as to whether oseto is present given metal hardware obstructing view -bone scan ordered -c/w vanc/zosyn -Dr treviño consulted -Dr Mckeon consulted -Dr Car consulted -f/u blood cx #DM -holding home medication regimen -ISS -BGMS ACHS -last HbA1c from 06/26/18 was 5.6 #Alcoholism -librium PO PRN F/E/N not on fluids monitor electrolytes diabetic diet DVT PPX: heparin SQ Problem List - Problem (1) Cellulitis Code(s): L03.90 - CELLULITIS, UNSPECIFIED Qualifiers: Site of cellulitis: extremity Site of cellulitis of extremity: lower extremity Laterality: left Qualified Code(s): L03.116 - Cellulitis of left lower limb (2) Diabetic foot ulcer Code(s): E11.621 - TYPE 2 DIABETES MELLITUS WITH FOOT ULCER; L97.509 - NON- PRESSURE CHRONIC ULCER OTH PRT UNSP FOOT W UNSP SEVERITY (3) Diabetes Code(s): E11.9 - TYPE 2 DIABETES MELLITUS WITHOUT COMPLICATIONS Visit type - Emergency Visit Emergency Visit: Yes ED Registration Date: 07/02/18 Care time: The patient presented to the Emergency Department on the above date and was hospitalized for further evaluation of their emergent condition. - New Patient This patient is new to me today: Yes Date on this admission: 07/03/18 - Critical Care Critical Care patient: No <Calixto Waller - Last Filed: 07/05/18 20:24> Seen and examined; agree with above aside from what is supplemented in my own documentation. Was present and verified all leija parts of history and physical exam.
[2018-07-03] MEDS ORDERED: chlordiazePOXIDE 5 MG CAPSULE PO PRN (01:18)
--- NOTE | 2018-07-03 01:26 | PN ---
Teaching Attending Note Name of Resident: Nelly Olson ATTENDING PHYSICIAN STATEMENT I saw and evaluated the patient. I reviewed the resident's note and discussed the case with the resident. I agree with the resident's findings and plan as documented. SUBJECTIVE: Seen and examined; please see resident note for further historical details. Briefly, this is a 67 y/o patient of Dr. 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 He is afebrile and hemodynamically stable and has no new complaints; he is able to ambulate on the wound. Wound care nurse, etc. recently stopped visiting. He has been with [facility] via. Dr. Mitchell. He has known vascular disease with a recent US showing severe SFA stenosis of the R- leg (75-99%) with patent 2 vessel runoff; L-side with occlusion vs. attenuation of the peroneal artery, moderate stenosis (50-74%) at proximal and mid SFA with patent 2 vessel runoff. Has not seen vascular. He does drink 10 oz of vodka almost daily. He admits to smoking. Seen 06/12 and had debridement with sharp knife with podiatry. Does have hardware. Will admit to medicine. 10 sys ROS done and negative aside from HPI PMH, PSH, FH, Social Hx reviewed Medication list pending reconciliation OBJECTIVE: VS, labs, imaging reviewed NAD, AAO, ambulating in holding area in good spirits B/L chronic venous stasis changes with DM-appearing ulcers; the plantar one in question is 2x3 and is hard without obvious drainage. Guido brownish red discoloration PVD vs. cellulitic changes. RRR s1/2 no mgr Lungs CTAB, w/ sym exp CN2-12 wnl, no fnd Normal mood, appropriate affect Labs show unremarkable CBC, unremarkable chemistry. Elevated Calcium at 10. Normal ESR. Alk phos slightly elevated which is new. Imaging pending. ASSESSMENT AND PLAN: Patient presents from podiatry office with concern of worsening DM foot infection; has known vascular disease. 1) DM Foot Infection/Cellulitis/R/O Osteomyelitis -Admit to medicine with podiatry consult and vascular consult. Afebrile, no WBC , and no ESR (but slightly positive CRP) which is reassuring -Reviewed prior imaging; NM bone scan ordered due to presence of hardware to r/ o any OM -Broad coverage with jean and barbara (ID consulted); wound care consult. Minimize walking, knee roller, etc. -Address underlying vascular issues 2) PVD/PAD -Results reviewed from prior US; consulting vascular surgery and podiatry. Deferring further imaging studies to their service. He does have neuropathy hx but described some sx that are suspicious for claudication. Good pulses on exam with no s/s CLI. 3) Elevated Alk Phos -Check GGT; if hepatic source check RUQ US. If bone likely from acute issue. 4) Hypercalcemia -Only 0.1 over the upper limit of normal; can repeat value and if persistently elevated would workup. No sx. Furthermore normal levels in the past. 5) DM -Hold PO meds while inpatient; SSI. 6) EtOH Abuse (potentially) -Tells me that he drinks 10oz vodka per day 4 days out of the week. Thiamine, folate, CIWA protocol. FENA -PO fluids -PRN replete -Diabetic Diet -As tolerated but enocuraged to follow podiatry instructions with wound Consults: Vascular, Podiatry, Infectious Disease Full Code
[2018-07-03] MEDS ORDERED: DEXTROSE 5%-WATER - 50 ML IVPB ONE ×3 (06:28→17:59)
[2018-07-03] MEDS ORDERED: PIPERACILLIN/TAZOBACTAM 3.375 GM VIAL IVPB ONE ×3 (06:28→17:59)
[2018-07-03] MEDS: PIPERACILLIN/TAZOB 3.375 GM 3.375 GM in DEXTROSE 5%-WATER - 50 ML IVPB SCH ×3 (06:59→17:55)
[2018-07-03] MEDS: GABAPENTIN 400 MG CAPSULE (FP) PO SCH ×3 (07:07→22:27)
[2018-07-03] MEDS: HEPARIN NA (PORCINE) 5,000 UNITS/ML 1ML VIAL SQ SCH ×3 (07:08→22:27)
[2018-07-03] MEDS: INSULIN SLIDING SCALE (NOVOLOG) 1 VIAL SQ SCH ×4 (07:09→22:32)
[2018-07-03 07:43] VITALS: BMI 29.2
[2018-07-03 08:01] LABS: BASO % 0.5 % (0-2.0); EOS % 4.7 % (0-4.5); HEMATOCRIT 42.5 % (35.4-49); HEMOGLOBIN 14.3 GM/dL (11.7-16.9); LYMPH % 15.9 % (8-40); MCH 32.2 pg (25.7-33.7); MCHC 33.5 g/dl (32.0-35.9); MEAN PLT VOLUME 7.8 fl (7.5-11.1); MONO % 8.7 % (3.8-10.2); NEUT % 70.2 % (42.8-82.8); PLATELET COUNT 163 K/MM3 (134-434); RBC 4.43 M/mm3 (4.00-5.60); RDW 13.9 % (11.9-15.9); WHITE BLOOD COUNT 6.4 K/mm3 (4.0-10.0)
[2018-07-03 08:49] LABS: BLOOD UREA NITROGEN 10 mg/dL (7-18); GLUCOSE,RANDOM 81 mg/dL (74-106)
[2018-07-03 08:50] LABS: ALBUMIN 2.9 g/dl (3.4-5.0); ALK PHOS 82 U/L (45-117); ANION GAP 13 MMOL/L (8-16); BILIRUBIN,TOTAL 0.2 mg/dL (0.2-1); CALCIUM 9.3 mg/dL (8.5-10.1); CHLORIDE 103 mmol/L (98-107); CO2 22 mmol/L (21-32); CREATININE 0.7 mg/dL (0.55-1.3); GAMMA GLUTAMYL TRANSPEPTIDASE 71 U/L (5-85); MAGNESIUM 1.6 mg/dL (1.8-2.4); PHOSPHOROUS 4.2 mg/dL (2.5-4.9); POTASSIUM 3.8 mmol/L (3.5-5.1); SGOT/AST 11 U/L (15-37); SGPT/ALT 17 U/L (13-61); SODIUM 138 mmol/L (136-145); TOT PROT 5.8 g/dl (6.4-8.2)
[2018-07-03] MEDS ORDERED: PNEUMOC 13-VAL CONJ-DIP CRM/PF 0.5 ML DISP.SYRIN IM ONE (09:00)
[2018-07-03] MEDS ORDERED: FLU VACCINE QUAD 60 MCG/0.5 ML (MDV 18-19) IM ONE (09:00)
[2018-07-03] MEDS ORDERED: VANCOMYCIN HCL 1,500 MG in DEXTROSE 5%-WATER - 250 ML IVPB SCH ×2 (10:00→11:30)
--- NOTE | 2018-07-03 11:37 | PN ---
Physical Exam: SUBJECTIVE: Patient seen and examined at bedside this morning. He denies subjective fevers, chills. No pain in the left lower extremity. He denies headaches, chest pain, palpitations, shortness of breath, abdominal pain, nausea , vomiting. OBJECTIVE: Vital Signs Period Temp Pulse Resp BP Sys/Corley Pulse Ox Last 24 Hr 98.1 F-98.5 F 80-84 18-20 95-120/53-81 95-100 GENERAL: The patient is awake, alert, and fully oriented, in no acute distress. HEAD: Normocephalic, atraumatic EYES: PERRL, extraocular movements intact, sclera anicteric. ENT: Oropharynx clear without exudates, moist mucous membranes. NECK: Supple without lymphadenopathy. LUNGS: Breath sounds equal, clear to auscultation bilaterally. No wheezes, no crackles. No accessory muscle use. HEART: Regular rate and rhythm, S1, S2 without murmur, rub or gallop. ABDOMEN: Soft, nontender, nondistended. Normoactive bowel sounds X4 quadrants. No guarding, no rebound tenderness. EXTREMITIES: 2+ radial pulses bilaterally. 1+ posterior tibialis pulses bilaterally. No lower extremity edema bilaterally. 3cm X 2cm ulcer ventral aspect left foot. Non erythematous, non draining. No probing to bone. Equally diminished sensation bilateral lower extremities. NEUROLOGICAL: Cranial nerves II through XII grossly intact. Normal speech. PSYCH: Normal mood, normal affect upon my encounter. Laboratory Results - last 24 hr 07/02/18 07/02/18 07/02/18 21:20 21:20 21:22 WBC 9.8 RBC 4.92 Hgb 16.2 Hct 46.7 MCV 95.0 MCH 32.9 MCHC 34.6 RDW 13.7 Plt Count 184 MPV 8.3 D Absolute Neuts (auto) 7.2 Neutrophils % 74.1 Lymphocytes % 14.3 D Monocytes % 8.4 Eosinophils % 2.6 Basophils % 0.6 Nucleated RBC % 0 ESR 6 Sodium 136 Potassium 4.1 Chloride 99 Carbon Dioxide 31 Anion Gap 6 L BUN 10 Creatinine 0.8 Creat Clearance w eGFR > 60 POC Glucometer Random Glucose 75 Calcium 10.2 H Phosphorus Magnesium Total Bilirubin 0.2 GGT AST 14 L ALT 22 Alkaline Phosphatase 121 H C-Reactive Protein Total Protein 7.1 Albumin 3.6 07/02/18 07/03/18 07/03/18 22:45 06:30 06:30 WBC 6.4 RBC 4.43 Hgb 14.3 Hct 42.5 MCV 96.0 MCH 32.2 MCHC 33.5 RDW 13.9 Plt Count 163 MPV 7.8 Absolute Neuts (auto) 4.5 Neutrophils % 70.2 Lymphocytes % 15.9 Monocytes % 8.7 Eosinophils % 4.7 H D Basophils % 0.5 Nucleated RBC % 0 ESR Sodium 138 Potassium 3.8 Chloride 103 Carbon Dioxide 22 Anion Gap 13 BUN 10 Creatinine 0.7 Creat Clearance w eGFR > 60 POC Glucometer Random Glucose 81 Calcium 9.3 Phosphorus 4.2 Magnesium 1.6 L Total Bilirubin 0.2 GGT 89 H 71 AST 11 L ALT 17 Alkaline Phosphatase 82 C-Reactive Protein 0.6 H Total Protein 5.8 L Albumin 2.9 L 07/03/18 07:05 WBC RBC Hgb Hct MCV MCH MCHC RDW Plt Count MPV Absolute Neuts (auto) Neutrophils % Lymphocytes % Monocytes % Eosinophils % Basophils % Nucleated RBC % ESR Sodium Potassium Chloride Carbon Dioxide Anion Gap BUN Creatinine Creat Clearance w eGFR POC Glucometer 90 Random Glucose Calcium Phosphorus Magnesium Total Bilirubin GGT AST ALT Alkaline Phosphatase C-Reactive Protein Total Protein Albumin Active Medications Generic Name Dose Route Start Last Admin Trade Name Freq PRN Reason Stop Dose Admin Chlordiazepoxide HCl 5 mg 07/03/18 01:18 Librium - PO Q6HPO PRN WITHDRAWAL(CONT SUBST) Collagenase 1 applic 07/03/18 11:00 Santyl - TP DAILY [facility] Protocol Folic Acid 1 mg 07/03/18 10:00 Folic Acid - PO DAILY [facility] Gabapentin 1,200 mg 07/03/18 06:00 07/03/18 07:07 Neurontin - PO 1,200 mg TID MEHREEN Administration Heparin Sodium (Porcine) 5,000 unit 07/03/18 06:00 07/03/18 07:08 Heparin - SQ 5,000 unit TID MEHREEN Administration Piperacillin Sod/Tazobactam 50 mls @ 100 mls/hr 07/03/18 05:30 07/03/18 06:59 Sod 3.375 gm/ Dextrose IVPB 07/03/18 11:59 100 mls/hr Q6H MEHREEN Administration Protocol Vancomycin HCl 1,500 mg/ 250 mls @ 125 mls/hr 07/03/18 10:00 Dextrose IVPB DAILY MEHREEN Protocol Piperacillin Sod/Tazobactam 50 mls @ 100 mls/hr 07/03/18 15:00 Sod 3.375 gm/ Dextrose IVPB Q6H-IV MEHREEN Insulin Aspart 1 vial 07/03/18 07:00 07/03/18 07:09 Novolog Vial Sliding Scale - SQ Not Given ACHS MEHREEN Protocol Thiamine HCl 100 mg 07/03/18 10:00 Vitamin B1 - PO DAILY [facility] ASSESSMENT/PLAN: Patient is a 67 year old male with history of Charcot foot (surgically repaired three years ago), recent lower extremity ostemyelitis (treated with 5 weeks Zosyn therapy), non-insulin dependent diabetes mellitus, 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 Left lower extremity diabetic foot ulcer -Concern for osteomyelitis. Reported to have been positive for Pseudomonas in Podiatry office yesterday. -Left foot, ankle radiograph shows evidence of prior stabilization of the talus with plate and screws. Degenerative changes noted. No fracture, subluxation, soft tissue air. -Patient received Vancomycin, Zosyn in ED -ESR 6, less suggestive of osteomyelitis -ID consult (Dr. Car) for antibiotic recommendations -Podiatry consult (Dr. Aragon) -Wound care, vascular surgery consult (Dr. Mckeon) -Follow Triple Phase bone scan- unable to do MRI as patient had prior surgery with metal instrumentation Diabetes mellitus -Holding home oral hypoglycemics -Insulin sliding scale ACHS -Fingerstick blood glucose monitoring ACHS -Gabapentin 1200mg PO TID for peripheral neuropathy Alcohol use disorder -Currently not in withdrawal. CIWA 0 -Monitor closely for signs of withdrawal. Will implement CIWA protocol if CIWA greater than 7 -Thiamine 100mg PO daily -Folic acid 1mg PO daily -Fall precautions -Aspiration precautions Nicotine dependence -Nicotine patch 21mg TD daily Elevated alkaline phosphatase -Resolved with repeat CMP. GGT within normal limits upon repeat. -No indication for further workup, or treatment at this time. FEN -No IV fluids indicated. Encourage judicious oral hydration. -Within normal limits, follow CMP -Diabetic diet Prophylaxis -Heparin 5000u subq TID Disposition -Continue care in medical- surgical floor Visit type - Emergency Visit Emergency Visit: Yes ED Registration Date: 07/02/18 Care time: The patient presented to the Emergency Department on the above date and was hospitalized for further evaluation of their emergent condition. - New Patient This patient is new to me today: Yes Date on this admission: 07/03/18 - Critical Care Critical Care patient: No - Discharge Referral Referred to [facility] Med P.C[facility] No Physician Referral: Saturnino Ding MD ([facility])
--- NOTE | 2018-07-03 11:51 | PN ---
Teaching Attending Note Name of Resident: Zeus Lubin ATTENDING PHYSICIAN STATEMENT I saw and evaluated the patient. I reviewed the resident's note and discussed the case with the resident. I agree with the resident's findings and plan as documented. SUBJECTIVE:asymptomatic. encouraged to come to ER after podiatry appointment due to concern for OM. denies CP, SOB, fever, chills, N/V/C/D. states he has minimal sensation in his foot OBJECTIVE: Last Vital Signs Temp Pulse Resp BP Pulse Ox 98.5 F 81 20 103/81 95 07/03/18 07:19 07/03/18 07:19 07/03/18 07:19 07/03/18 07:19 07/03/18 07:19 General NAD Lungs CTA B/L no wheezing/rales/rhonchi Abdomen soft NT/ND no RUQ pain extremities 1+RLE DP pulse. 2cm round lesion on plantar aspect of foot below the 1st digit with clean wound bed no drainage. does not probe to bone. no surrounding erythema or warmth. multiple other lesions that are crusted over on both feet with no active drainage or warmth decreased sensation B/L LE ASSESSMENT AND PLAN: 67yo M with PMH charcot foot, OM, continuous polysubstance dependence (ETOH and tobacco), DM presented to the ER wtih diabetic foot ulcer 1. Diabetic foot ulcer- low concern for OM given low CRP however does have risk factors also for recurrent OM based on hx. unable to obtain MRI due to hardware from previous surgery. will obtain bone scan to further delineate. as per podiatry +pseudomonas from bx done in the office. consult for ID for abx treatment 2. Elevated alk phos- now resolved. no assoc abdominal pain. will d/c u/s at this time. no further workup indicated 3. continuous polysubstance dependence-no sign of withdrawal. will order nicotine patch. counseled on risk and lifestyle modification 4. DM- hold oral agents. iss and bgm 5. DVT ppx- hep
[2018-07-03] MEDS: THIAMINE HCL 100 MG TABLET (FP) PO SCH (12:09)
[2018-07-03] MEDS: COLLAGENASE CLOSTRIDIUM HIST. 30 GRAMS TUBE TP SCH (12:10)
[2018-07-03] MEDS: FOLIC ACID 1 MG TABLET (FP) PO SCH (12:10)
[2018-07-03] MEDS ORDERED: PIPERACILLIN/TAZOB 3.375 GM 3.375 GM in DEXTROSE 5%-WATER - 50 ML IVPB SCH ×2 (15:00→21:00)
--- NOTE | 2018-07-03 15:13 | CONSULT ---
Consult Consult Specialty:: Podiatry Reason for Consultation:: Chronic wounds left heel - History of Present Illness Chief Complaint: Infected left foot History of Present Illness: Pseudomans on outpatient wound culture - Past Medical History Endocrine: Yes: Diabetes Mellitus - Alcohol/Substance Use Hx Alcohol Use: Yes - Smoking History Smoking history: Current every day smoker Have you smoked in the past 12 months: Yes Aproximately how many cigarettes per day: 20 Home Medications - Allergies Allergies/Adverse Reactions: Allergies Allergy/AdvReac Type Severity Reaction Status Date / Time sulfamethoxazole Allergy Verified 07/02/18 21:14 [From Bactrim] trimethoprim [From Bactrim] Allergy Verified 07/02/18 21:14 - Home Medications Home Medications: Ambulatory Orders Gabapentin [Neurontin] 1,200 mg PO TID 02/20/18 Sitagliptin Phosphate [Januvia] 100 tab PO DAILY 02/20/18 metFORMIN HCL [Metformin ER Osmotic] 1 tab PO BID 02/20/18 Pramipexole Di-HCl [Mirapex] 0.25 mg PO BID 07/03/18 Physical Exam Vital Signs: Vital Signs Temperature 98.2 F 07/03/18 14:50 Pulse Rate 72 07/03/18 14:50 Respiratory Rate 18 07/03/18 14:50 Blood Pressure 142/85 07/03/18 14:50 O2 Sat by Pulse Oximetry (%) 95 07/03/18 07:19 Extremities: Yes: Other (charcot foot left with 2 wounds, +chronic in nature, + grade 0 medial foot, +grade 2-3 left plantar) Labs: CBC, BMP 07/03/18 06:30 07/03/18 06:30 Assessment/Plan om? charcot foot chronic wound IVABX as per ID. Wound care with santyl daily. Limited to brp. Awaiting bone scan. Vascular consulted. No surgery at this time. Will follow.
[2018-07-03] MEDS: NICOTINE 21 MG/24 HOURS TOPICAL PATCH TD SCH (15:15)
--- NOTE | 2018-07-03 16:44 | EKG ---
Test Reason : Blood Pressure : / mmHG Vent. Rate : 078 BPM Atrial Rate : 078 BPM P-R Int : 196 ms QRS Dur : 130 ms QT Int : 410 ms P-R-T Axes : 088 -54 -04 degrees QTc Int : 467 ms NORMAL SINUS RHYTHM RIGHT BUNDLE BRANCH BLOCK LEFT ANTERIOR FASCICULAR BLOCK BIFASCICULAR BLOCK VOLTAGE CRITERIA FOR LEFT VENTRICULAR HYPERTROPHY CANNOT RULE OUT SEPTAL INFARCT (CITED ON OR BEFORE 21-FEB-2018) ABNORMAL ECG WHEN COMPARED WITH ECG OF 21-FEB-2018 12:48, QUESTIONABLE CHANGE IN INITIAL FORCES OF SEPTAL LEADS Confirmed by YESSICA SAPP MD ([id number]) on 07/03/2018 4:43:30 PM Referred By: Confirmed By:YESSICA SAPP MD
--- NOTE | 2018-07-03 17:38 | CON.ID ---
Consult - Past Medical History Endocrine: Yes: Diabetes Mellitus - Alcohol/Substance Use Hx Alcohol Use: Yes - Smoking History Smoking history: Current every day smoker Have you smoked in the past 12 months: Yes Aproximately how many cigarettes per day: 20 Home Medications - Allergies Allergies/Adverse Reactions: Allergies Allergy/AdvReac Type Severity Reaction Status Date / Time sulfamethoxazole Allergy Verified 07/02/18 21:14 [From Bactrim] trimethoprim [From Bactrim] Allergy Verified 07/02/18 21:14 - Home Medications Home Medications: Ambulatory Orders Gabapentin [Neurontin] 1,200 mg PO TID 02/20/18 Sitagliptin Phosphate [Januvia] 100 tab PO DAILY 02/20/18 metFORMIN HCL [Metformin ER Osmotic] 1 tab PO BID 02/20/18 Pramipexole Di-HCl [Mirapex] 0.25 mg PO BID 07/03/18 Physical Exam Vital Signs: Vital Signs Temperature 98.2 F 07/03/18 14:50 Pulse Rate 72 07/03/18 14:50 Respiratory Rate 18 07/03/18 14:50 Blood Pressure 142/85 07/03/18 14:50 O2 Sat by Pulse Oximetry (%) 95 07/03/18 07:19 Labs: CBC, BMP 07/03/18 06:30 07/03/18 06:30
[2018-07-04] MEDS ORDERED: PIPERACILLIN/TAZOBACTAM 3.375 GM VIAL IVPB ONE ×2 (02:03→09:07)
[2018-07-04] MEDS ORDERED: DEXTROSE 5%-WATER - 50 ML IVPB ONE ×2 (02:03→09:07)
[2018-07-04] MEDS: PIPERACILLIN/TAZOB 3.375 GM 3.375 GM in DEXTROSE 5%-WATER - 50 ML IVPB SCH ×2 (02:22→10:01)
[2018-07-04] MEDS: GABAPENTIN 400 MG CAPSULE (FP) PO SCH ×2 (06:49→13:19)
[2018-07-04] MEDS: HEPARIN NA (PORCINE) 5,000 UNITS/ML 1ML VIAL SQ SCH ×2 (06:50→13:20)
[2018-07-04] MEDS: INSULIN SLIDING SCALE (NOVOLOG) 1 VIAL SQ SCH ×2 (06:58→11:24)
--- NOTE | 2018-07-04 07:06 | PN ---
Physical Exam: SUBJECTIVE: Patient seen and examined at bedside this morning. No acute overnight events. Patient denies subjective fevers, chills, lightheadedness, headaches, agitation, chest pain, palpitations, shortness of breath. Tolerating diet without abdominal pain, nausea, vomiting. OBJECTIVE: Vital Signs Period Temp Pulse Resp BP Sys/Corley Pulse Ox Last 24 Hr 98.2 F-98.5 F 72-81 18-20 103-142/81-85 95-95 GENERAL: The patient is awake, alert, and fully oriented, in no acute distress. HEAD: Normocephalic, atraumatic EYES: PERRL, extraocular movements intact without nystagmus, sclera anicteric. ENT: Oropharynx clear without exudates, moist mucous membranes. NECK: Supple without lymphadenopathy. LUNGS: Breath sounds equal, clear to auscultation bilaterally. No wheezes, no crackles. No accessory muscle use. HEART: Regular rate and rhythm, S1, S2 without murmur, rub or gallop. ABDOMEN: Soft, nontender, nondistended. Normoactive bowel sounds X4 quadrants. No guarding, no rebound tenderness. EXTREMITIES: 2+ radial pulses bilaterally. 1+ posterior tibialis pulses bilaterally. No lower extremity edema bilaterally. 3cm X 2cm ulcer ventral aspect left foot. Bandaged with santyl, clean, dry, non erythematous, non draining. No probing to bone. Equally diminished sensation bilateral lower extremities. NEUROLOGICAL: Cranial nerves II through XII grossly intact. Normal speech. PSYCH: Normal mood, normal affect upon my encounter. Laboratory Results - last 24 hr 07/03/18 07/03/18 07/03/18 06:30 06:30 07:05 WBC 6.4 RBC 4.43 Hgb 14.3 Hct 42.5 MCV 96.0 MCH 32.2 MCHC 33.5 RDW 13.9 Plt Count 163 MPV 7.8 Absolute Neuts (auto) 4.5 Neutrophils % 70.2 Lymphocytes % 15.9 Monocytes % 8.7 Eosinophils % 4.7 H D Basophils % 0.5 Nucleated RBC % 0 Sodium 138 Potassium 3.8 Chloride 103 Carbon Dioxide 22 Anion Gap 13 BUN 10 Creatinine 0.7 Creat Clearance w eGFR > 60 POC Glucometer 90 Random Glucose 81 Calcium 9.3 Phosphorus 4.2 Magnesium 1.6 L Total Bilirubin 0.2 GGT 71 AST 11 L ALT 17 Alkaline Phosphatase 82 Total Protein 5.8 L Albumin 2.9 L 07/03/18 07/03/18 07/04/18 11:51 17:42 06:55 WBC RBC Hgb Hct MCV MCH MCHC RDW Plt Count MPV Absolute Neuts (auto) Neutrophils % Lymphocytes % Monocytes % Eosinophils % Basophils % Nucleated RBC % Sodium Potassium Chloride Carbon Dioxide Anion Gap BUN Creatinine Creat Clearance w eGFR POC Glucometer 92 126 97 Random Glucose Calcium Phosphorus Magnesium Total Bilirubin GGT AST ALT Alkaline Phosphatase Total Protein Albumin Active Medications Generic Name Dose Route Start Last Admin Trade Name Caridad PRN Reason Stop Dose Admin Collagenase 1 applic 07/03/18 11:00 07/03/18 12:10 Santyl - TP 1 applic DAILY MEHREEN Administration Protocol Folic Acid 1 mg 07/03/18 10:00 07/03/18 12:10 Folic Acid - PO 1 mg DAILY MEHREEN Administration Gabapentin 1,200 mg 07/03/18 06:00 07/04/18 06:49 Neurontin - PO 1,200 mg TID MEHREEN Administration Heparin Sodium (Porcine) 5,000 unit 07/03/18 06:00 07/04/18 06:50 Heparin - SQ 5,000 unit TID MEHREEN Administration Piperacillin Sod/Tazobactam 50 mls @ 100 mls/hr 07/03/18 18:00 07/04/18 02:22 Sod 3.375 gm/ Dextrose IVPB 100 mls/hr Q8H-IV MEHRENE Administration Protocol Insulin Aspart 1 vial 07/03/18 07:00 07/04/18 06:58 Novolog Vial Sliding Scale - SQ Not Given ACHS MEHREEN Protocol Nicotine 21 mg 07/03/18 14:00 07/03/18 15:15 Nicoderm Patch - TD 21 mg DAILY MEHREEN Administration Thiamine HCl 100 mg 07/03/18 10:00 07/03/18 12:09 Vitamin B1 - PO 100 mg DAILY MEHREEN Administration ASSESSMENT/PLAN: Patient is a 67 year old male with history of Charcot foot (surgically repaired three years ago), recent lower extremity ostemyelitis (treated with 5 weeks Zosyn therapy), non-insulin dependent diabetes mellitus, 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 Left lower extremity diabetic foot ulcer -Triple Phase bone scan concerning for osteomyelitis, however unchanged from prior study. Reported by podiatry to have been positive for Pseudomonas. -Left foot, ankle radiograph shows evidence of prior stabilization of the talus with plate and screws. Degenerative changes noted. No fracture, subluxation, soft tissue air. -ESR 6, less suggestive of osteomyelitis -ID consult (Dr. Car) appreciated. -Zosyn 3.375grams IV Q8H -Podiatry consult (Dr. Aragon) appreciated. Bandage with Santyl dressings. -Wound care, vascular surgery consult (Dr. Mckeon) Diabetes mellitus -Holding home oral hypoglycemics -Insulin sliding scale ACHS -Fingerstick blood glucose monitoring ACHS -Gabapentin 1200mg PO TID for peripheral neuropathy Alcohol use disorder -Currently not in withdrawal. CIWA 0 -Monitor closely for signs of withdrawal. Will implement CIWA protocol if CIWA greater than 7 -Thiamine 100mg PO daily -Folic acid 1mg PO daily -Fall precautions -Aspiration precautions Nicotine dependence -Nicotine patch 21mg TD daily Elevated alkaline phosphatase -Resolved with repeat CMP. GGT within normal limits upon repeat. -No indication for further workup, or treatment at this time. FEN -No IV fluids indicated. Encourage judicious oral hydration. -Within normal limits, follow CMP -Diabetic diet Prophylaxis -Heparin 5000u subq TID Disposition -Continue care in medical- surgical floor
[2018-07-04 07:32] LABS: HEMATOCRIT 42.5 % (35.4-49); HEMOGLOBIN 14.5 GM/dL (11.7-16.9); MCH 32.4 pg (25.7-33.7); MCHC 34.1 g/dl (32.0-35.9); MEAN PLT VOLUME 7.8 fl (7.5-11.1); PLATELET COUNT 152 K/MM3 (134-434); RBC 4.48 M/mm3 (4.00-5.60); RDW 13.8 % (11.9-15.9)
[2018-07-04 08:07] LABS: ALBUMIN 3.1 g/dl (3.4-5.0); ALK PHOS 78 U/L (45-117); ANION GAP 6 MMOL/L (8-16); BILIRUBIN,TOTAL 0.6 mg/dL (0.2-1); BLOOD UREA NITROGEN 10 mg/dL (7-18); CALCIUM 9.1 mg/dL (8.5-10.1); CHLORIDE 100 mmol/L (98-107); CO2 30 mmol/L (21-32); CREATININE 0.9 mg/dL (0.55-1.3); GLUCOSE,RANDOM 99 mg/dL (74-106); POTASSIUM 4.3 mmol/L (3.5-5.1); SGOT/AST 13 U/L (15-37); SGPT/ALT 18 U/L (13-61); SODIUM 136 mmol/L (136-145); TOT PROT 6.2 g/dl (6.4-8.2)
[2018-07-04] MEDS: THIAMINE HCL 100 MG TABLET (FP) PO SCH (09:13)
[2018-07-04] MEDS: FOLIC ACID 1 MG TABLET (FP) PO SCH (09:13)
[2018-07-04] MEDS: NICOTINE 21 MG/24 HOURS TOPICAL PATCH TD SCH (09:19)
--- NOTE | 2018-07-04 10:24 | PN ---
Teaching Attending Note Name of Resident: Zeus Lubin ATTENDING PHYSICIAN STATEMENT I saw and evaluated the patient. I reviewed the resident's note and discussed the case with the resident. I agree with the resident's findings and plan as documented. SUBJECTIVE: asymptomatic. denies CP, SOB, fever, chills, N/V/C/D OBJECTIVE: Last Vital Signs Temp Pulse Resp BP Pulse Ox 97.9 F 72 18 142/77 95 07/04/18 06:00 07/04/18 06:00 07/04/18 06:00 07/04/18 06:00 07/03/18 09:00 General NAD ASSESSMENT AND PLAN: 67yo M with PMH charcot foot, OM, continuous polysubstance dependence (ETOH and tobacco), DM presented to the ER wtih diabetic foot ulcer 1. Diabetic foot ulcer-NM bone scan negative for infection. as per podiatry Cx + pseudomonas unknown sensitivities. will f/u with podiatry and ID to determine abx treatment. currently on Zosyn day 2. 2. Elevated alk phos- now resolved. no assoc abdominal pain. no further workup indicated 3. continuous polysubstance dependence-no sign of withdrawal. will order nicotine patch. counseled on risk and lifestyle modification 4. DM- hold oral agents. iss and bgm 5. DVT ppx- hep 6. pt is competent in home infusions and is able to do IV abx. possible d/c later today
--- NOTE | 2018-07-04 11:32 | PN ---
Progress Note, Physician History of Present Illness: patient stable no complaints bone scan seen and the results noted - Current Medication List Current Medications: Active Medications Collagenase (Santyl -) 1 applic TP DAILY [facility]; Protocol Last Admin: 07/03/18 12:10 Dose: 1 applic Folic Acid (Folic Acid -) 1 mg PO DAILY [facility] Last Admin: 07/04/18 09:13 Dose: 1 mg Gabapentin (Neurontin -) 1,200 mg PO TID [facility] Last Admin: 07/04/18 06:49 Dose: 1,200 mg Heparin Sodium (Porcine) (Heparin -) 5,000 unit SQ TID [facility] Last Admin: 07/04/18 06:50 Dose: 5,000 unit Piperacillin Sod/Tazobactam (Sod 3.375 gm/ Dextrose) 50 mls @ 100 mls/hr IVPB Q8H-IV [facility]; Protocol Last Admin: 07/04/18 10:01 Dose: 100 mls/hr Insulin Aspart (Novolog Vial Sliding Scale -) 1 vial SQ ACHS [facility]; Protocol Last Admin: 07/04/18 11:24 Dose: Not Given Nicotine (Nicoderm Patch -) 21 mg TD DAILY [facility] Last Admin: 07/04/18 09:19 Dose: 21 mg Thiamine HCl (Vitamin B1 -) 100 mg PO DAILY [facility] Last Admin: 07/04/18 09:13 Dose: 100 mg - Objective Vital Signs: Vital Signs Temperature 97.9 F 07/04/18 06:00 Pulse Rate 72 07/04/18 06:00 Respiratory Rate 18 07/04/18 06:00 Blood Pressure 142/77 07/04/18 06:00 O2 Sat by Pulse Oximetry (%) 96 07/04/18 09:00 Constitutional: Yes: No Distress, Calm Cardiovascular: Yes: Regular Rate and Rhythm Respiratory: Yes: Regular, CTA Bilaterally Gastrointestinal: Yes: Normal Bowel Sounds, Soft Wound/Incision: Yes: Clean/Dry Neurological: Yes: Alert, Oriented Psychiatric: Yes: Alert, Oriented Labs: CBC, BMP 07/04/18 06:20 07/04/18 06:00 Assessment/Plan Assessment/Plan Problem List - Problems (1) Diabetes Code(s): E11.9 - TYPE 2 DIABETES MELLITUS WITHOUT COMPLICATIONS (2) Cellulitis Code(s): L03.90 - CELLULITIS, UNSPECIFIED (3) Diabetic foot ulcer Code(s): E11.621 - TYPE 2 DIABETES MELLITUS WITH FOOT ULCER; L97.509 - NON- PRESSURE CHRONIC ULCER OTH PRT UNSP FOOT W UNSP SEVERITY 4 charcots foot after looking at the scan i have low suspicion for osteo patient has the same reading and has the same finding and patient was treated in that view i am going to give him levaquin for 2 weeks 750 mg daily monitor closely
[2018-07-04] MEDS: COLLAGENASE CLOSTRIDIUM HIST. 30 GRAMS TUBE TP SCH (11:53)
[2018-07-04 12:04] VITALS: BP 134/64; PULSE 74; TEMP 98.2
--- NOTE | 2018-07-04 13:34 | DS ---
Physical Exam: SUBJECTIVE: Patient seen and examined at bedside this morning. No acute overnight events. Patient denies subjective fevers, chills, lightheadedness, headaches, agitation, chest pain, palpitations, shortness of breath. Tolerating diet without abdominal pain, nausea, vomiting. OBJECTIVE: Vital Signs Period Temp Pulse Resp BP Sys/Corley Pulse Ox Last 24 Hr 97.9 F-98.2 F 72-74 18-20 134-142/64-85 96 PHYSICAL EXAM GENERAL: The patient is awake, alert, and fully oriented, in no acute distress. HEAD: Normocephalic, atraumatic EYES: PERRL, extraocular movements intact without nystagmus, sclera anicteric. ENT: Oropharynx clear without exudates, moist mucous membranes. NECK: Supple without lymphadenopathy. LUNGS: Breath sounds equal, clear to auscultation bilaterally. No wheezes, no crackles. No accessory muscle use. HEART: Regular rate and rhythm, S1, S2 without murmur, rub or gallop. ABDOMEN: Soft, nontender, nondistended. Normoactive bowel sounds X4 quadrants. No guarding, no rebound tenderness. EXTREMITIES: 2+ radial pulses bilaterally. 1+ posterior tibialis pulses bilaterally. No lower extremity edema bilaterally. 3cm X 2cm ulcer ventral aspect left foot. Bandaged with santyl, clean, dry, non erythematous, non draining. No probing to bone. Equally diminished sensation bilateral lower extremities. NEUROLOGICAL: Cranial nerves II through XII grossly intact. Normal speech. PSYCH: Normal mood, normal affect upon my encounter. LABS Laboratory Results - last 24 hr 07/03/18 07/04/18 07/04/18 17:42 06:00 06:20 WBC 6.0 RBC 4.48 Hgb 14.5 Hct 42.5 MCV 95.0 MCH 32.4 MCHC 34.1 RDW 13.8 Plt Count 152 MPV 7.8 Sodium 136 Potassium 4.3 Chloride 100 Carbon Dioxide 30 Anion Gap 6 L BUN 10 Creatinine 0.9 Creat Clearance w eGFR > 60 POC Glucometer 126 Random Glucose 99 Calcium 9.1 Total Bilirubin 0.6 AST 13 L ALT 18 Alkaline Phosphatase 78 Total Protein 6.2 L Albumin 3.1 L 07/04/18 07/04/18 06:55 11:22 WBC RBC Hgb Hct MCV MCH MCHC RDW Plt Count MPV Sodium Potassium Chloride Carbon Dioxide Anion Gap BUN Creatinine Creat Clearance w eGFR POC Glucometer 97 132 Random Glucose Calcium Total Bilirubin AST ALT Alkaline Phosphatase Total Protein Albumin HOSPITAL COURSE: Date of Admission:07/02/18 Date of Discharge: 07/04/18 Patient is a 67 year old male with history of Charcot foot (surgically repaired three years ago), recent lower extremity ostemyelitis (treated with 5 weeks Zosyn therapy), non-insulin dependent diabetes mellitus, 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 Reported by podiatry to have been positive for Pseudomonas. Left foot ankle radiograph showed evidence of prior stabilization of the talus with plate and screws. Degenerative changes noted. No fracture, subluxation, soft tissue air. Triple Phase bone scan was concerning for osteomyelitis, however unchanged from prior study. ESR 6, less suggestive of osteomyelitis. Patient was evaluated by infectious disease physician and started on Zosyn. Patient was noted not in acute withdrawal during hospitalization. Thiamine and Folic acid initiated. Nicotine patch for nicotine dependance, and smoking cessation. Cultures and sensitivities were obtained from [employer] office, and patient was discharged with oral Levaquin for 14 days with ID recommendation. Follow up with primary care physician, cargo and ramp services manager, wound care/ vascular surgery, and infectious disease. Minutes to complete discharge: 35 Discharge Summary Reason For Visit: DIABETIC FOOT ULCER,CELLULITIS Current Active Problems Cellulitis (Acute) Diabetic foot ulcer (Acute) Condition: Stable - Instructions Diet, Activity, Other Instructions: Hospital course: You were admitted to hospital with a left foot ulcer. You were evaluated by cargo and ramp services manager, infectious disease physician You were treated with antibiotics, and are being discharged home Medicine recommendations: You will continue taking your home medications as directed. Begin taking antibiotic Levaquin 750mg daily for two weeks. Keep your foot clean, and dry. Apply Santyl dressing to the wound daily, and dress with clean gauze bandage.. Begin taking vitamins: Thiamine 100mg daily, and Folic acid 1mg daily You will continue using Nicotine Patch daily. Discuss the new medications with your primary care physician at your appointment. Follow-up recommendations Follow up with your primary care physician within two- three days after discharge Follow up with cargo and ramp services manager (Dr. Aragon) within one week of discharge Return to the nearest Emergency Department if your experience worsening symptoms , fevers, chills, shortness of breath, chest pain, palpitations, abdominal pain , nausea, vomiting, drainage or bleeding from your wound. Referrals: Jerrod Car MD [Staff Physician] - ON STAFF,NOT [Primary Care Provider] - Rm Mckeon MD [Non Staff, Medical] - Geovanna Aragon DPM [Staff Physician] - Disposition: HOME - Home Medications Comprehensive Discharge Medication List: Ambulatory Orders Gabapentin [Neurontin] 1,200 mg PO TID 02/20/18 Sitagliptin Phosphate [Januvia] 100 tab PO DAILY 02/20/18 metFORMIN HCL [Metformin ER Osmotic] 1 tab PO BID 02/20/18 Pramipexole Di-HCl [Mirapex] 0.25 mg PO BID 07/03/18 Collagenase Clostridium Hist. [Santyl -] 1 applic TP DAILY #1 tube 07/04/18 Folic Acid - 1 mg PO DAILY 28 Days #28 tablet 07/04/18 Gauze Bandage 1 each TP DAILY 14 Days #14 bandage 07/04/18 Levofloxacin [Levaquin] 750 mg PO DAILY 14 Days #14 tablet 07/04/18 Nicotine Patch [Nicoderm Patch -] 21 mg TD DAILY 7 Days #7 patch 07/04/18 Thiamine HCl [Vitamin B1 -] 100 mg PO DAILY 28 Days #28 tablet 07/04/18 This patient is new to me today: No Emergency Visit: Yes ED Registration Date: 07/02/18 Care time: The patient presented to the Emergency Department on the above date and was hospitalized for further evaluation of their emergent condition. Critical Care patient: No - Discharge Referral Referred to [facility] Med P.C.: No
--- NOTE | 2018-07-04 15:06 | PN ---
Progress Note (short form) - Note Progress Note: FYV left foot. vss, Tmax 98.2 +granulating wound, -foul odor, +improved cellulitis, charcot foot chronic wound Abx as per ID. Will follow out patient. PTR to [facility] on 07/10/18. Dressing changes every 2 days in wcc. Call if any poblems or questions.
== END 2018-07-04 15:30 | disposition home or self-care (01) | DRG 603 ==
LOC: JER 20:38 → JERBED 23:37 → J8W 07-03 03:50
PROVIDERS: ADMIT Internal Medicine; ATTEND Internal Medicine
PROC: HZ2ZZZZ Detoxification Services for Substance Abuse Treatment (ICD-10-PCS; principal; 2018-07-02)
DX: L03.116 Cellulitis of left lower limb (principal); L97.429 Non-pressure chronic ulcer of left heel and midfoot with unspecified severity; E11.621 Type 2 diabetes mellitus with foot ulcer; F17.210 Nicotine dependence, cigarettes, uncomplicated; E83.52 Hypercalcemia; F10.10 Alcohol abuse, uncomplicated
CPT/HCPCS: 36415; 71045-TC-FY; 73610-TC-LT-FY; 73630-TC-LT; 78315-TC; 80053; 82962; 82977; 83735; 84100; 85025; 85027; 85651; 86140; 87040; 90670; 90688; 93005; 93010; 99285-25; A9503; G0008; G0009; G0277; J1644; J7030

== ENCOUNTER 2018-10-16 10:57 | Day surgery (SDC) | payer OTHER | END 2018-10-16 19:43 | disposition home or self-care (01) | LOC: JASU-SURG 10:57 ==